=== PATIENT | female | born 1940 | race Caucasian/White ===

== ENCOUNTER 2017-03-25 22:38 | Inpatient (IN) ==
[2017-03-26] MEDS ORDERED: Ondansetron 4 MG/2 ML VIAL IVP PRN (03:31)
[2017-03-26] MEDS ORDERED: Naloxone 0.4 MG/ML INJ IVP PRN (03:31)
[2017-03-26] MEDS ORDERED: Dextrose Gel 15 GM PO PRN ×2 (03:34)
[2017-03-26] MEDS ORDERED: D5% in Water 1,000 ML IVC PRN (03:34)
[2017-03-26] MEDS ORDERED: *HR* Dextrose 50 % in Water (Syg) 50 ML SYRINGE IVP PRN (03:34)
--- NOTE | 2017-03-26 03:45 | Internal Med History&Physical ---
Date of Encounter: 03/26/17 Time of Encounter: 02:30 Assessment and Plan (1) Fall Current visit: Yes Status: Acute Patient complaint bilateral leg weakness. Etiology is undetermined. Transfer to [facility] to rule out stroke. CT head has been done in [place] emergency room, unremarkable. - PT OT evaluation for weakness. - MRI brain in AM to r/o stroke. - Continue cardiac monitoring. Qualifiers: Encounter type: initial encounter Qualified Code(s): W19.XXXA - Unspecified fall, initial encounter (2) Diabetes Current visit: Yes Status: Acute Place patient on sliding scale at this point. Resume home insulin regimen after verification Qualifiers: Diabetes mellitus type: type 2 Diabetes mellitus complication status: without complication Diabetes mellitus truck terminal manager insulin use: with truck terminal manager use Qualified Code(s): E11.9 - Type 2 diabetes mellitus without complications ; Z79.4 - long term acute care registered nurse (current) use of insulin; Z79.4 - snf (current) use of insulin; Z79.4 - long term acute care registered nurse (current) use of insulin; Z79.4 - snf ( current) use of insulin (3) DVT prophylaxis Current visit: Yes Status: Acute Heparin subcutaneously (4) Stroke syndrome Current visit: No Status: Suspected Suspected stroke. Patient has history of CVA. - Place pt on continuous cardiac monitoring - Echo and duplex carotid bilaterally - MRI brain in AM - PTOT evaluation - Speech therapy evaluation for swallowing - Continue home medication aspirin 81 mg daily Qualifiers: CVA mechanism: unspecified Qualified Code(s): I63.9 - Cerebral infarction, unspecified Internal Medicine - H&P: HPI Chief complaint: Fall, weakness Admitted From: Home Plans for Post Hospital Care: Home History of present illness: Ms. Gillette is a 76 year old female with a history of diabetes, previous CVA present to [place] emergency room for fall and weakness. Patient said she has fall in yesterday morning, with dizziness, but no loss of consciousness. Patient denies head injury. She denies any pain on body. Patient said she has bilateral leg weakness prior to fall. Patient denies numbness/tingling/slurred speech. Patient also noticed blood sugar level up and down. In [place] ER, patient's sugar is not low, CVA was suspected by ER doctor. Patient transferred to our hospital for further management. Per [place] ER documentation, patient symptoms started 10+ hours before ER presentation. Past Med Surg Social Fam HX - Past Medical History Medical history: CVA, diabetes Psychiatric history: no psych history - Past Surgical History Surgical History: - Social History Smoking Status: Former smoker Smokeless Tobacco Status: No Alcohol use: none Drug use: none - Family History Brother Hx Family Endocrine Disorder: Yes (DM) Internal Medicine - H&P: Meds Aspirin [Lo-Dose Aspirin EC] 81 mg PO DAILY 03/25/17 [History] Insulin ASPART [NovoLOG] 22 unit SQ BID 03/25/17 [History] Insulin Degludec [Tresiba Flextouch U-100] 35 unit SQ DAILY 03/25/17 [History] Liraglutide [Victoza 2-Chris] 18 mg SQ DAILY 03/25/17 [History] 3 Allergy/AdvReac Type Severity Reaction Status Date / Time No Known Allergies Allergy Verified 03/25/17 21:43 All Systems PM: A 10-system review of systems was performed and is negative for pertinent findings except as documented above in the HPI. - Constitutional Vitals: Temp Pulse Resp BP Pulse Ox 99.0 F 95 16 146/80 98 03/26/17 00:28 03/26/17 00:28 03/26/17 00:28 03/26/17 00:28 03/26/17 00:28 General appearance: Present: A&O X 3, pleasant, no acute distress, answers questions appropriately - Head Head exam: Present: atraumatic, normocephalic - Eye Eye exam: Present: PERRL, conjuntiva pink, sclera anicteric Pupils: Present: PERRL - Neck Neck exam general surgery: Present: supple, trachea midline. Absent: lymphadenopathy - Respiratory Respiratory exam: Present: CTAB. Absent: accessory muscle use, rales, rhonchi, wheezes - Cardiovascular Cardiovascular exam: Present: RRR, +S1, +S2. Absent: diastolic murmur, gallop, rubs, systolic murmur - GI/Abdominal GI/Abdominal exam: Present: normal bowel sounds, soft, no peritoneal signs. Absent: distended, tenderness - Extremities Exam Extremities exam: Present: warm, radial pulses palpable and symmetrical. Absent : calf tenderness, cyanotic, pedal edema - Neurological Exam Neurological exam: Present: CN II-XII intact, oriented X3, no focal deficits, facial droop (Nonsignificant right facial drop, not sure if it is new). Absent : pronater drift, speech deficit - Skin Skin exam: Present: dry, intact
[2017-03-26 04:39] LABS: Bilirubin,Urine Negative (Negative); Blood,Urine Large (Negative); Clarity,Urine Clear (Clear); Color,Urine Yellow (Yellow); Glucose,Urine (UA) 500 mg/dL (Normal); Ketones,Urine Negative (Negative); Leukocyte Esterase,Urine Trace (Negative); Nitrite,Urine Negative (Negative); Protein,Urine Negative (Neg-Trace); Specific Gravity,Urine 1.018 (1.010-1.025); Urobilinogen,Urine Normal (Normal)
[2017-03-26 04:42] LABS: Bacteria,Urine None Seen per hpf (None-Few); Hyaline Casts,Urine None Seen per lpf (None-Few); Squamous Epithelial Cell,Urine Moderate per lpf (None-Few)
[2017-03-26] MEDS: Insulin LISPRO 300 UNITS/3 ML VIAL SQ SCH ×3 (05:55→21:35)
[2017-03-26] MEDS ORDERED: *HR* Heparin 5,000 UNIT/ML VIAL SQ SCH (06:00)
[2017-03-26 06:03] LABS: Basophils # 0.1 K/mcL (0.0-0.2); Basophils % 1.1 %; Eosinophils # 0.2 K/mcL (0.0-0.6); Eosinophils % 2.1 %; Hematocrit 38.2 % (35.3-44.9); Hemoglobin 12.7 g/dL (11.5-15.4); Immature Granulocytes % 0.2 % (0-4); Lymphocytes # 2.1 K/mcL (0.6-4.6); Lymphocytes % 23.7 %; Mean Corpuscular HGB Conc 33.2 g/dL (31.6-35.5); Mean Corpuscular Hemoglobin 30.2 pg (28.0-33.3); Mean Corpuscular Volume 90.7 fL (83.0-100.0); Mean Platelet Volume 10.9 fL (9.4-12.4); Monocytes # 1.1 K/mcL (0.0-1.3); Monocytes % 12.4 %; Neutrophils # 5.4 K/mcL (1.6-8.9); Platelet Count 250 K/mcL (140-400); Red Blood Count 4.21 M/mcL (3.82-4.97); Red Cell Distribution Width 13.8 % (11.5-14.5); Segmented Neutrophils % 60.5 %
[2017-03-26 06:17] LABS: BUN/Creatinine Ratio 23 (6-26); Blood Urea Nitrogen 18 mg/dL (7-20); Calcium 8.9 mg/dL (8.6-10.8); Carbon Dioxide 24 mEq/L (19-29); Chloride 110 mEq/L (98-109); Glucose 110 mg/dL (70-99); Osmolality,Calculated 301 (280-300); Potassium 3.8 mEq/L (3.5-4.5); Sodium 144 mEq/L (136-145); eGFR For African Americans > 60 (> 60); eGFR For Non-African Americans > 60 (> 60)
[2017-03-26] MEDS ORDERED: Aspirin Enteric Coated 81 MG Tablet PO SCH (09:00)
[2017-03-26] MEDS: *HR* Enoxaparin 40 MG/0.4 ML SYRINGE SQ SCH (10:16)
[2017-03-26] MEDS: cefTRIAXone 1,000 MG in Water for inj. (sterile) 10 ML IVP SCH (10:17)
[2017-03-26] MEDS: 0.9 % Sodium Chloride 1,000 ML IVC SCH (10:17)
[2017-03-26] MEDS: Acetaminophen 325 MG TABLET PO PRN ×3 (12:20→23:54)
[2017-03-26] MEDS ORDERED: Ibuprofen 400 MG TABLET PO ONE (14:30)
--- NOTE | 2017-03-26 15:00 | Neurology - Consult Note ---
Date of Encounter: 03/26/17 Time of Encounter: 14:58 Assessment and Plan (1) CVA (cerebral vascular accident) Current Visit: Yes Status: Acute Patient is a 76 year old woman with DM who developed acute onset of left sided weakness altered mental status, consistent with the finding of MRI of brain of right sided hemispheric ischemic infarct. The area involved is somewhat not typical and concerns for posterior circulation infarct or borderzone infarct therefore will look for carotid artery stenosis. Patient has not been compliant with aspirin 81mg daily and will recommend aspirin 325mg daily for secondary stroke prevention. Check lipid panel and treat with statin if necessary. Await carotid artery duplex and echocardiogaphy Patient has left hemiparesis and her gait is affected. Needs PT evaluation. DVT prophylaxis. Qualifiers: CVA mechanism: occlusion Precerebral and cerebral artery: posterior cerebral artery Laterality of affected vessel: right Qualified Code(s): I63.531 - Cerebral infarction due to unspecified occlusion or stenosis of right posterior cerebral artery History of Present Illness Chief complaint: left sided weakness and headache HPI: Ms. Gillette is a 76 year old female with PMH Significant for DM, who developed acute onset of left sided weakness and weakness and headaches. She is interviewed in the presence of her three daughters. One daughter relates that she noticed that the patient developed left sided weakness, gait difficulty, and facial droop and knew that she had a stroke. She also complains of having right sided headache that is not associated with nausea. Initial CT of head was reported no acute intracranial abnormality. MR head/brain wo con IMPRESSION: 1. A moderate to large acute infarct is seen involving the mesial right temporal /occipital lobe. 2. Acute lacunar infarcts are seen involving the right thalamus, the posterior limb of the right internal capsule as well as the left genu of the corpus callosum. 3. No significant mass effect or midline shift. 4. Mild global parenchymal volume loss with chronic microvascular ischemic change. Past Med Surg Social Fam HX - Past Medical History Medical history: CVA, diabetes Psychiatric history: no psych history - Past Surgical History Surgical History: - Social History Smoking Status: Former smoker Smokeless Tobacco Status: No Alcohol use: none Drug use: none - Family History Brother Hx Family Endocrine Disorder: Yes (DM) Medications and Allergies Aspirin [Lo-Dose Aspirin EC] 81 mg PO DAILY 03/25/17 [History] Insulin ASPART [NovoLOG] 22 unit SQ BID 03/25/17 [History] Insulin Degludec [Tresiba Flextouch U-100] 35 unit SQ DAILY 03/25/17 [History] Liraglutide [Victoza 2-Chris] 18 mg SQ DAILY 03/25/17 [History] 3 Allergy/AdvReac Type Severity Reaction Status Date / Time No Known Allergies Allergy Verified 03/25/17 21:43 All Systems: A 10-system review of systems was performed and is negative for pertinent findings except as documented above in the HPI. Physical Examination - Vital Signs Vital Signs: Initial Vital Signs Temp Pulse Resp BP Pulse Ox 99.0 F 95 16 146/80 98 03/26/17 00:28 03/26/17 00:28 03/26/17 00:28 03/26/17 00:28 03/26/17 00:28 - Constitutional General appearance: comfortable - Neurologic Sensorimotor examination: pronator drift (To the left side), hemiparesis (To the left side noted), other (Grossly intact) Detailed motor examination: other (Shows left sided paresis, with positive pronator drift noted to the left side) Motor examination - right side: 5/5: deltoids, biceps, triceps, wrist flexion, wrist extension, mild disabilities teacher, hip flexors, tibialis Anterior, quadriceps, toe extension (EHL), plantarflexion Motor examination - left side: 4/5: deltoids, biceps, triceps, wrist flexion, wrist extension, hip flexors, mild disabilities teacher, quadriceps, tibialis Anterior, toe extension (EHL), plantarflexion Reflexes: Biceps: 2+, Triceps: 2+, Brachioradialis: 2+, Patella: 2+, Achilles: 2 + Mental Status Examination: awake, alert, oriented to person, oriented to place, oriented to time, follows commands appropriately, answers questions appropriately Cranial nerve examination: PERRL, EOMI, visual rivera intact, corneal reflexes brisk symmetrically, sensory to face intact, no facial asymmetry is present ( Showed left facial droop) Results - Laboratory Findings CBC and BMP: 03/26/17 05:13 03/26/17 05:13 Abnormal lab findings: Abnormal lab results Chloride 110 mEq/L (98-109) H 03/26/17 05:13 Glucose 110 mg/dL (70-99) H 03/26/17 05:13 Calculated Osmolality 301 (280-300) H 03/26/17 05:13 Urine Glucose (UA) 500 mg/dL (Normal) H 03/26/17 04:31 Urine Blood Large (Negative) H 03/26/17 04:31 Ur Leukocyte Esterase Trace (Negative) H 03/26/17 04:31 Urine Microscopic RBC 5-15 per hpf (0-3) H 03/26/17 04:31 Urine Microscopic WBC 5-15 per hpf (0-3) H 03/26/17 04:31 Ur Squamous Epith Cells Moderate per lpf (None-Few) H 03/26/17 04:31 Ur Culture Indicated? YES (NO) A 03/26/17 04:31 Consult Discharge Plan - Plan Referrals: Omari Holcomb, [Primary Care Provider] -
--- NOTE | 2017-03-26 17:11 | Event Note ---
Date of Encounter: 03/26/17 Time of Encounter: 17:09 Chart reviewed including H&P, vital signs, orders, labs and diagnostic testing. Patient is a 76-year-old female admitted for concern of CVA. Brain MRI showed a moderate to large acute infarct in the right temporal/occipital lobe and acute lacunar infarcts involving the right thalamus. Neurology was consulted who recommended full dose ASA. Patient will likely need SNF at discharge. PT/OT evaluation pending. Continue ASA. Hgb A1c, lipid panel pending. UA indicative of UTI. Ceftriaxone added. Culture pending
[2017-03-27] MEDS: Acetaminophen 325 MG TABLET PO PRN ×2 (05:39→12:15)
[2017-03-27] MEDS: *HR* Enoxaparin 40 MG/0.4 ML SYRINGE SQ SCH (05:39)
[2017-03-27] MEDS: 0.9 % Sodium Chloride 1,000 ML IVC SCH (05:40)
[2017-03-27 06:09] LABS: Hematocrit 38.7 % (35.3-44.9); Hemoglobin 12.7 g/dL (11.5-15.4); Mean Corpuscular HGB Conc 32.8 g/dL (31.6-35.5); Mean Corpuscular Hemoglobin 30.1 pg (28.0-33.3); Mean Corpuscular Volume 91.7 fL (83.0-100.0); Mean Platelet Volume 10.6 fL (9.4-12.4); Platelet Count 242 K/mcL (140-400); Red Blood Count 4.22 M/mcL (3.82-4.97); Red Cell Distribution Width 13.7 % (11.5-14.5)
[2017-03-27 06:20] LABS: Hemoglobin A1C 8.2 %
[2017-03-27 06:25] LABS: BUN/Creatinine Ratio 20 (6-26); Blood Urea Nitrogen 16 mg/dL (7-20); Calcium 8.4 mg/dL (8.6-10.8); Carbon Dioxide 24 mEq/L (19-29); Chloride 111 mEq/L (98-109); Chol/HDL Ratio 4.3 (0-4.9); Cholesterol 188 mg/dL (< 200); Glucose 172 mg/dL (70-99); HDL Cholesterol 44 mg/dL (40-59); LDL Cholesterol,Calculated 116 mg/dL (0-99); Osmolality,Calculated 301 (280-300); Sodium 143 mEq/L (136-145); Triglycerides 142 mg/dL (< 150); eGFR For African Americans > 60 (> 60); eGFR For Non-African Americans > 60 (> 60)
[2017-03-27] MEDS ORDERED: Aspirin Enteric Coated 325 MG Tablet PO SCH (09:00)
[2017-03-27] MEDS: Insulin LISPRO 300 UNITS/3 ML VIAL SQ SCH ×4 (09:03→21:13)
[2017-03-27] MEDS: cefTRIAXone 1,000 MG in Water for inj. (sterile) 10 ML IVP SCH (10:34)
[2017-03-27] MEDS ORDERED: Ibuprofen 400 MG TABLET PO ONE (15:23)
--- NOTE | 2017-03-27 15:52 | Internal Med Progress Note ---
Date of Encounter: 03/27/17 Time of Encounter: 15:49 - Assessment and plan (1) CVA (cerebral vascular accident) Current Visit: Yes Status: Acute Assessment and plan: Cary Gillette is a 76-year-old female past medical history diabetes presented to outside hospital on 03/26/2017 with concern for CVA. She was transferred to [facility] for further workup and treatment. 1. CVA: Brain MRI with moderate to large acute infarct and right temporal/ occipital lobe and acute lacunar infarcts in the right thalamus. TTE with no PFO or cardiac source of emboli. Noncompliant with ASA 81 mg daily at home. Evaluated by neurology who is concern for posterior circulation infarct or border zone infarct as the area involved is not typical. Bilateral carotid Dopplers with severe stenosis, worse on the right. ASA increased to 325 mg daily. Neck CTA pending. 2. Hyperlipidemia: LDL 116. Statin added. 3. Diabetes: Uncontrolled, Hgb A1c 8.4%. Family reports noncompliance with medication. Continue SSI. Monitor blood sugar and titrate PRN 4. UTI: UA negative for UTI. Continue ceftriaxone. Urine culture ending. 5. DVT prophylaxis: Lovenox, SCDs Qualifiers: CVA mechanism: occlusion Precerebral and cerebral artery: posterior cerebral artery Laterality of affected vessel: right Qualified Code(s): I63.531 - Cerebral infarction due to unspecified occlusion or stenosis of right posterior cerebral artery (2) Diabetes Current Visit: Yes Status: Acute Qualifiers: Diabetes mellitus type: type 2 Diabetes mellitus complication status: without complication Diabetes mellitus penitentiary insulin use: with technician terminal and repeater use Qualified Code(s): E11.9 - Type 2 diabetes mellitus without complications ; Z79.4 - terminal manager (current) use of insulin; Z79.4 - terminal manager (current) use of insulin; Z79.4 - terminal manager (current) use of insulin; Z79.4 - terminal manager ( current) use of insulin - Subjective Interval history: Valerio examined at bedside. She is alert to self with intermittent confusion. Still with left-sided facial droop and left-sided weakness. She has no complaints on my exam - Constitutional Vitals: Temp Pulse Resp BP Pulse Ox 97.9 F 79 17 148/80 97 03/27/17 10:44 03/27/17 10:44 03/27/17 10:44 03/27/17 10:44 03/27/17 10:44 General appearance: Present: A&O X 2, pleasant, no acute distress, answers questions appropriately - Head Head exam: Present: atraumatic, normocephalic - Eye Eye exam: Present: PERRL, conjuntiva pink, sclera anicteric Pupils: Present: PERRL - Neck Neck exam general surgery: Present: supple, trachea midline. Absent: lymphadenopathy - Respiratory Respiratory exam: Present: CTAB. Absent: accessory muscle use, rales, rhonchi, wheezes - Cardiovascular Cardiovascular exam: Present: RRR, +S1, +S2. Absent: diastolic murmur, gallop, rubs, systolic murmur - GI/Abdominal GI/Abdominal exam: Present: normal bowel sounds, soft, no peritoneal signs. Absent: distended, tenderness - Extremities Exam Extremities exam: Present: warm, radial pulses palpable and symmetrical. Absent : calf tenderness, cyanotic, pedal edema - Neurological Exam Neurological exam: Present: CN II-XII intact, no focal deficits. Absent: pronater drift, facial droop, speech deficit Additional comments: Left-sided facial droop with left-sided weakness - Skin Skin exam: Present: dry, intact Internal Medicine: Result - Labs CBC & Chem 7: 03/27/17 05:16 03/27/17 05:16 Labs: Short CBC 03/27/17 Range/Units 05:16 WBC 6.4 (4.3-11.1) K/mcL Hgb 12.7 (11.5-15.4) g/dL Hct 38.7 (35.3-44.9) % Plt Count 242 (140-400) K/mcL [facility] 03/27/17 05:16 Sodium 143 Potassium 4.0 Chloride 111 H Carbon Dioxide 24 BUN 16 Creatinine 0.79 Glucose 172 H Calcium 8.4 L - Impressions Impressions Echocardiogram 03/26/17 03:36 Impressions: LVEF 60-65%. Normal LV chamber size and function. Mild concentric left ventricular hypertrophy. Mild left ventricular diastolic dysfunction. Normal right ventricular structure and function. No evidence of a PFO with agitated saline contrast. No evidence of pulmonary hypertension. Left Ventricular Wall Motion: Rest Echo Findings All wall segments showed normal motion. Findings: Study Quality * Technically adequate exam. ECG Findings * Normal sinus rhythm. Left Ventricle * LVEF 60-65%. * Normal LV chamber size and function. * Mild concentric left ventricular hypertrophy. * Mild left ventricular diastolic dysfunction. Right Ventricle * Normal right ventricular structure and function. Left Atrium * Mildly dilated left atrium. Right Atrium * Normal right atrial size. Interatrial Septum * No evidence of a PFO with agitated saline contrast. Aortic Valve * Trileaflet aortic valve. * Mildly sclerotic aortic valve leaflets. * No aortic regurgitation. * No aortic stenosis. Mitral Valve * Normal mitral valve structure and function. * No mitral regurgitation. * No mitral stenosis. Tricuspid Valve * Normal tricuspid valve structure and function. * Trace tricuspid regurgitation. * No evidence of pulmonary hypertension. Pulmonic Valve * Normal pulmonic valve structure and function. * No pulmonic regurgitation. Aorta * Normally sized aortic root. Pericardium * The pericardium appears normal. IVC * Normal IVC dimensions and inspiratory collapse. Pulmonary Artery * Normal visualized portions of the main pulmonary artery. Consult Discharge Plan - Plan Referrals: Omari Holcomb DO [Primary Care Provider] -
--- NOTE | 2017-03-27 16:48 | Neurology Progress Note ---
Date of Encounter: 03/27/17 Time of Encounter: 16:45 Assessment and Plan (1) CVA (cerebral vascular accident) Current Visit: Yes Status: Acute Patient is a 76 year old woman with cerebral infarct involving the right mesial temporal and occipital lobe with a pattern concerning for borderzone infarct. Indeed CTA of neck showed 90% right ICA stenosis which appears symptomatic. Will consult vascular surgery. Add plavix 75mg daily and continue aspirin 81mg daily. Continue statin therapy. Risk factor modification. PT. Qualifiers: CVA mechanism: occlusion Precerebral and cerebral artery: anterior cerebral artery Laterality of affected vessel: right Qualified Code(s): I63.521 - Cerebral infarction due to unspecified occlusion or stenosis of right anterior cerebral artery Subjective Principal diagnosis: CVA Interval history: Patient seen and examined. She is doing well and her mental status has improved and she has no significant discomforts. Still has left facial droop and mild left sided paresis. Carotid artery duplex showed 60-79% ICA stenosis bilaterally and subsequently CTA of neck showed 90% right ICA stenosis and 50% to the left ICA. Echocardiography showed normal LVEF 60-65%. Normal LV chamber size and function. Mild concentric left ventricular hypertrophy. Mild left ventricular diastolic dysfunction. Normal right ventricular structure and function. No evidence of a PFO with agitated saline contrast. No evidence of pulmonary hypertension. Objective - Constitutional Vitals: Temp Pulse Resp BP Pulse Ox 97.6 F 83 16 152/78 99 03/27/17 16:39 03/27/17 16:39 03/27/17 16:39 03/27/17 16:39 03/27/17 16:39 - Neurological Exam Sensorimotor examination: Present: pronator drift (To the left side), hemiparesis (To the left side noted), other (Grossly intact) Motor Examination: Present: other (Shows left sided paresis, with positive pronator drift noted to the left side) Motor examination - left side: 4/5: deltoids, biceps, triceps, wrist flexion, wrist extension, hip flexors, street light cleaner, quadriceps, tibialis Anterior, toe extension (EHL), plantarflexion Mental Status Examination: Present: awake, alert, oriented to person, oriented to place, oriented to time, follows commands appropriately, answers questions appropriately Cranial nerve examination: Present: PERRL, EOMI, visual rivera intact, corneal reflexes brisk symmetrically, sensory to face intact, no facial asymmetry is present (Showed left facial droop) Results - Laboratory Findings CBC and BMP: 03/27/17 05:16 03/27/17 05:16 Abnormal lab findings: Abnormal lab results Chloride 111 mEq/L (98-109) H 03/27/17 05:16 Glucose 172 mg/dL (70-99) H 03/27/17 05:16 POC Glucose 195 (58-89) H 03/26/17 21:11 Hemoglobin A1c 8.2 % (-5.6) H 03/27/17 05:16 Calculated Osmolality 301 (280-300) H 03/27/17 05:16 Calcium 8.4 mg/dL (8.6-10.8) L 03/27/17 05:16 LDL Cholesterol, Calc 116 mg/dL (0-99) H 03/27/17 05:16 Urine Glucose (UA) 500 mg/dL (Normal) H 03/26/17 04:31 Urine Blood Large (Negative) H 03/26/17 04:31 Ur Leukocyte Esterase Trace (Negative) H 03/26/17 04:31 Urine Microscopic RBC 5-15 per hpf (0-3) H 03/26/17 04:31 Urine Microscopic WBC 5-15 per hpf (0-3) H 03/26/17 04:31 Ur Squamous Epith Cells Moderate per lpf (None-Few) H 03/26/17 04:31 Ur Culture Indicated? YES (NO) A 03/26/17 04:31 Consult Discharge Plan - Plan Referrals: Omari Holcomb DO [Primary Care Provider] -
[2017-03-27] MEDS: Insulin DETEMIR 100 UNIT/ML X5UNITS SQ SCH (21:09)
[2017-03-28] MEDS: Acetaminophen 325 MG TABLET PO PRN ×2 (00:28→14:30)
[2017-03-28 04:36] LABS: Hemoglobin 12.2 g/dL (11.5-15.4); Mean Corpuscular Hemoglobin 30.5 pg (28.0-33.3); Mean Corpuscular Volume 92.5 fL (83.0-100.0); Mean Platelet Volume 10.8 fL (9.4-12.4); Platelet Count 204 K/mcL (140-400); Red Cell Distribution Width 13.5 % (11.5-14.5)
[2017-03-28 04:56] LABS: BUN/Creatinine Ratio 22 (6-26); Blood Urea Nitrogen 17 mg/dL (7-20); Calcium 8.4 mg/dL (8.6-10.8); Carbon Dioxide 24 mEq/L (19-29); Chloride 112 mEq/L (98-109); Glucose 180 mg/dL (70-99); Osmolality,Calculated 298 (280-300); Potassium 3.9 mEq/L (3.5-4.5); Sodium 141 mEq/L (136-145); eGFR For African Americans > 60 (> 60); eGFR For Non-African Americans > 60 (> 60)
[2017-03-28] MEDS: *HR* Enoxaparin 40 MG/0.4 ML SYRINGE SQ SCH (05:39)
--- NOTE | 2017-03-28 07:24 | Vascular/Endovasc Consult Note ---
Date of Encounter: 03/28/17 Time of Encounter: 18:15 Assessment and Plan (1) Carotid stenosis, right Status: Chronic The pathophysiology and natural history of carotid stenosis was discussed with the patient and all questions were answered. The patient has a recnet right hemispheric CVA. She does not appear to have any focal neurologic deficits on exam today. She has a greater than 90% right internal carotid artery stenosis on CTA. The patient will ultimately require a right carotid endarterectomy. The risks, benefits and alternatives were discussed and all questions were answered. ASA and Plavix recommended. (2) Diabetes Status: Chronic Qualifiers: Diabetes mellitus type: type 2 Diabetes mellitus complication status: without complication Diabetes mellitus detention insulin use: with long term care administrator use Qualified Code(s): E11.9 - Type 2 diabetes mellitus without complications ; Z79.4 - ocean transportation intermediary (current) use of insulin; Z79.4 - ocean transportation intermediary (current) use of insulin; Z79.4 - senior care (current) use of insulin; Z79.4 - ocean transportation intermediary ( current) use of insulin (3) CVA (cerebral vascular accident) Status: Acute Qualifiers: CVA mechanism: stenosis Precerebral and cerebral artery: posterior cerebral artery Laterality of affected vessel: right Qualified Code(s): I63.531 - Cerebral infarction due to unspecified occlusion or stenosis of right posterior cerebral artery - History of Present Illness Consult date: 03/27/17 Requesting physician: Elsi Esteban Consult reason: Carotid stenosis Chief complaint: Carotid stenosis, CVA History of present illness: Ms. Gillette is a 76 year old female who was admitted with a right hemispheric cerebrovascular accident. Her symptoms were mainfested by leg weakness. Her symptoms resolved after admission. As part of her evaluation, she underwent a a CTA of the neck which revealed significant carotid artery stenosis. Vascular surgery was consulted for further evaluation. At the time of evaluation, the patient is alert, comfortable and without complaints. She denies chest pain or shortness of breath. She denies prior strokes. Past Med Surg Social Fam HX - Past Medical History Medical history: CVA, diabetes Psychiatric history: no psych history - Past Surgical History Surgical History: - Social History Smoking Status: Former smoker Smokeless Tobacco Status: No Alcohol use: none Drug use: none - Family History Brother Hx Family Endocrine Disorder: Yes (DM) Medications and Allergies Aspirin [Lo-Dose Aspirin EC] 81 mg PO DAILY 03/25/17 [History] Atorvastatin [Lipitor] 20 mg PO HS tablet 03/29/17 [Rx] Clopidogrel [Plavix] 75 mg PO DAILY tablet 03/29/17 [Rx] Insulin DETEMIR [Levemir] 10 unit SQ HS [id number] 03/29/17 [Rx] Insulin LISPRO [Humalog] 100 unit SQ ACHS #1 cartridge 03/29/17 [Rx] Nitrofurantoin Monohyd/M-Cryst [Macrobid 100 mg Capsule] 100 mg PO BID #14 capsule 03/29/17 [Rx] 3 Allergy/AdvReac Type Severity Reaction Status Date / Time No Known Allergies Allergy Verified 03/25/17 21:43 All Systems Review: A 10-system review of systems was performed and is negative for pertinent findings except as documented above in the HPI. Exam Vital Signs, Last 4 Hours Temp Pulse Resp BP Pulse Ox 03/28/17 04:15 97.9 F 62 18 136/84 03/28/17 04:06 97.9 F 62 18 136/84 03/28/17 03:33 97.9 F 62 18 136/84 98 General: Present: Conversant, No Apparent Distress HEENT: Present: Pupils equal Cardiac: Present: Reg Rate and Rhythm Lungs: Present: Normal Breath Sounds Neuro: Present: Alert and responsive, Cranial nerves grossly intact, Motor nerves grossly intact, Sensory nerves grossly intact Abdomen: Present: Soft Vascular: Present: Normal capillary refill, Pulse, normal. Absent: Cyanosis, Edema Skin: Present: No rashes noted on visualized skin Consult Discharge Plan - Plan Instructions: Carotid Endarterectomy (DC), Carotid Artery Disease (DC), Ischemic Stroke (DC) Referrals: Angel Bragg MD [Partnered Physician] - 04/08/17 3:50 pm Omari Holcomb DO [Primary Care Provider] - Kye Lanza MD [Partnered Physician] - (Appoointment has been webrequested; our offices will call you with an appointment time and date. Thank You. ) Prescriptions: Insulin LISPRO [Humalog] 100 unit SQ ACHS #1 cartridge Nitrofurantoin Monohyd/M-Cryst [Macrobid 100 mg Capsule] 100 mg PO BID #14 capsule
[2017-03-28] MEDS: Aspirin 81 MG TAB.CHEW PO SCH (08:55)
[2017-03-28] MEDS: Insulin LISPRO 300 UNITS/3 ML VIAL SQ SCH ×4 (08:55→21:47)
[2017-03-28] MEDS: cefTRIAXone 1,000 MG in Water for inj. (sterile) 10 ML IVP SCH (12:17)
--- NOTE | 2017-03-28 16:07 | Internal Med Progress Note ---
Date of Encounter: 03/28/17 Time of Encounter: 08:30 - Assessment and plan (1) CVA (cerebral vascular accident) Current Visit: Yes Status: Acute Assessment and plan: Cary Gillette is a 76-year-old female past medical history diabetes presented to outside hospital on 03/26/2017 with concern for CVA. She was transferred to [facility] for further workup and treatment. 1. CVA: Brain MRI with moderate to large acute infarct in right temporal/ occipital lobe and acute lacunar infarcts in the right thalamus. TTE with no PFO or cardiac source of emboli. Bilateral carotid Dopplers with severe stenosis , worse on the right. Neck CTA with 90% stenosis of artery ICA and 50% stenosis of LICA. Evaluated by neurology who recommended ASA 81 mg daily and Plavix. Will need acute inpatient rehabilitation at discharge. 2. Carotid stenosis: Neck CTA with 90% stenosis of SANTO and 50% stenosis of LICA. Evaluated by Vascular Surgery who noted patient will require a right carotid endarterectomy. Final recommendations pending. Continue ASA, Plavix, statin. 2. Hyperlipidemia: LDL 116. Statin added. 3. Diabetes: Uncontrolled, Hgb A1c 8.4%. Family reports noncompliance with medication. Continue SSI. Low dose long-acting Levemir. Monitor blood sugar and titrate PRN 4. UTI: UA negative for UTI. Continue ceftriaxone. Urine culture pending. 5. DVT prophylaxis: Lovenox, SCDs Disposition: PT/OT recommending acute inpatient rehabilitation. 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 No acute changes and assessment report. Patient remains alert to self and place at times. She will answer questions appropriately at times and follow commands. No family at bedside. She has no complaints. - Constitutional Vitals: Temp Pulse Resp BP Pulse Ox 98.6 F 77 17 160/85 97 03/28/17 15:27 03/28/17 15:27 03/28/17 15:27 03/28/17 15:27 03/28/17 15:27 General appearance: Present: A&O X 2, pleasant, no acute distress, answers questions appropriately - Head Head exam: Present: atraumatic, normocephalic - Eye Eye exam: Present: PERRL, conjuntiva pink, sclera anicteric Pupils: Present: PERRL - Neck Neck exam general surgery: Present: supple, trachea midline. Absent: lymphadenopathy - Respiratory Respiratory exam: Present: CTAB. Absent: accessory muscle use, rales, rhonchi, wheezes - Cardiovascular Cardiovascular exam: Present: RRR, +S1, +S2. Absent: diastolic murmur, gallop, rubs, systolic murmur - GI/Abdominal GI/Abdominal exam: Present: normal bowel sounds, soft, no peritoneal signs. Absent: distended, tenderness - Extremities Exam Extremities exam: Present: warm, radial pulses palpable and symmetrical. Absent : calf tenderness, cyanotic, pedal edema - Neurological Exam Neurological exam: Present: CN II-XII intact, no focal deficits. Absent: pronater drift, facial droop, speech deficit Additional comments: Intermittent left upper extremity weakness and left facial droop. - Skin Skin exam: Present: dry, intact Internal Medicine: Result - Labs CBC & Chem 7: 03/28/17 04:10 03/28/17 04:10 Labs: Short CBC 03/28/17 Range/Units 04:10 WBC 7.2 (4.3-11.1) K/mcL Hgb 12.2 (11.5-15.4) g/dL Hct 37.0 (35.3-44.9) % Plt Count 204 (140-400) K/mcL BMP 03/28/17 04:10 Sodium 141 Potassium 3.9 Chloride 112 H Carbon Dioxide 24 BUN 17 Creatinine 0.78 Glucose 180 H Calcium 8.4 L Urine 03/26/17 Range/Units 04:31 Urine Color Yellow (Yellow) Urine Clarity Clear (Clear) Urine pH 6.0 (5.0-8.0) pH Units Ur Specific [place] 1.018 (1.010-1.025) Urine Protein Negative (Neg-Trace) mg/dL Urine Glucose (UA) 500 H (Normal) mg/dL Consult Discharge Plan - Plan Referrals: Angel Bragg MD [Partnered Physician] - 04/08/17 3:50 pm Omari Holcomb DO [Primary Care Provider] -
[2017-03-28] MEDS: Insulin DETEMIR 100 UNIT/ML X5UNITS SQ SCH (21:46)
[2017-03-29 03:32] LABS: Hematocrit 39.2 % (35.3-44.9); Mean Corpuscular HGB Conc 33.2 g/dL (31.6-35.5); Mean Corpuscular Hemoglobin 30.5 pg (28.0-33.3); Mean Platelet Volume 10.7 fL (9.4-12.4); Platelet Count 251 K/mcL (140-400); Red Blood Count 4.26 M/mcL (3.82-4.97); Red Cell Distribution Width 13.4 % (11.5-14.5)
[2017-03-29 03:58] LABS: BUN/Creatinine Ratio 23 (6-26); Blood Urea Nitrogen 18 mg/dL (7-20); Calcium 8.8 mg/dL (8.6-10.8); Carbon Dioxide 24 mEq/L (19-29); Chloride 110 mEq/L (98-109); Glucose 154 mg/dL (70-99); Osmolality,Calculated 299 (280-300); Potassium 3.9 mEq/L (3.5-4.5); Sodium 142 mEq/L (136-145); eGFR For African Americans > 60 (> 60); eGFR For Non-African Americans > 60 (> 60)
[2017-03-29] MEDS: *HR* Enoxaparin 40 MG/0.4 ML SYRINGE SQ SCH (06:10)
[2017-03-29] MEDS: Acetaminophen 325 MG TABLET PO PRN (06:11)
[2017-03-29] MEDS: Insulin LISPRO 300 UNITS/3 ML VIAL SQ SCH (08:28)
[2017-03-29] MEDS: Aspirin 81 MG TAB.CHEW PO SCH (08:28)
--- NOTE | 2017-03-29 09:47 | Discharge Summary ---
Date of Encounter: 03/29/17 Time of Encounter: 09:20 - Discharge Diagnosis (1) CVA (cerebral vascular accident) Priority: Primary Status: Acute Comments: Cary Gillette is a 76-year-old female past medical history diabetes presented to outside hospital on 03/26/2017 with concern for CVA. She was transferred to [facility] for further workup and treatment. She was found to have an acute CVA. She was transferred to acute inpatient rehab at discharge in stable condition [facility] outpatient follow-up 1. CVA: due to stenosis of right posterior cerebral artery. Presented with bilateral lower ext weakness and fall. Brain MRI with moderate to large acute infarct in right temporal/occipital lobe and acute lacunar infarcts in the right thalamus. TTE with no PFO or cardiac source of emboli. Bilateral carotid dopplers with severe stenosis. Neck CTA with 90% stenosis of SANTO and 50% stenosis of LICA. Evaluated by neurology who recommended ASA, Plavix. Discharge to acute inpatient rehab. Cont ASA, plavix, statin. Will need to follow-up with Neurology. 2. Carotid stenosis: Neck CTA with 90% stenosis of SANTO and 50% stenosis of LICA. Evaluated by Vascular Surgery who noted patient will require a right carotid endarterectomy; this can be done on an outpatient basis. Continue ASA, Plavix, statin. Follow-up with Dr. Beverly on 04/08/17 3. Hyperlipidemia: LDL 116. Cont statin 4. Diabetes: Uncontrolled, Hgb A1c 8.4%. Family reports noncompliance with medication. Continue SSI. Low dose Levemir. 5. UTI: UA indicative of UTI. Ceftriaxone started on admission. Urine culture with gram negative rods, sensitive to Macrobid. ATB changed to Macrobid; to complete 7 day course Qualifiers: CVA mechanism: stenosis Precerebral and cerebral artery: anterior cerebral artery Laterality of affected vessel: right Qualified Code(s): I63.521 - Cerebral infarction due to unspecified occlusion or stenosis of right anterior cerebral artery (2) Diabetes Priority: Primary Status: Acute Qualifiers: Diabetes mellitus type: type 2 Diabetes mellitus complication status: without complication Diabetes mellitus long-term insulin use: with long-term use Qualified Code(s): E11.9 - Type 2 diabetes mellitus without complications ; Z79.4 - USP (current) use of insulin; Z79.4 - USP (current) use of insulin; Z79.4 - USP (current) use of insulin; 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 (3) Hyperlipidemia Priority: Primary Status: Acute Qualifiers: Hyperlipidemia type: pure hypercholesterolemia Qualified Code(s): E78.00 - Pure hypercholesterolemia, unspecified; E78.0 - Pure hypercholesterolemia (4) UTI (urinary tract infection) due to Enterococcus Priority: Primary Status: Acute - Discharge Medications Prescriptions: Insulin LISPRO [Humalog] 100 unit SQ ACHS #1 cartridge Nitrofurantoin Monohyd/M-Cryst [Macrobid 100 mg Capsule] 100 mg PO BID #14 capsule Home Medications: Aspirin [Lo-Dose Aspirin EC] 81 mg PO DAILY 03/25/17 [History] Atorvastatin [Lipitor] 20 mg PO HS tablet 03/29/17 [Rx] Clopidogrel [Plavix] 75 mg PO DAILY tablet 03/29/17 [Rx] Insulin DETEMIR [Levemir] 10 unit SQ HS [id number] 03/29/17 [Rx] Insulin LISPRO [Humalog] 100 unit SQ ACHS #1 cartridge 03/29/17 [Rx] Nitrofurantoin Monohyd/M-Cryst [Macrobid 100 mg Capsule] 100 mg PO BID #14 capsule 03/29/17 [Rx] Allergies/Adverse Reactions: 3 Allergy/AdvReac Type Severity Reaction Status Date / Time No Known Allergies Allergy Verified 03/25/17 21:43 Procedures/tests Complete & Pending: Procedures Performed prior 72 hours Category Date Time Status CT angio neck [CT] Routine Cat Scan 03/27/17 14:00 Completed Date of admission: 03/26/17 16:10 Primary care physician: Omari Holocmb DO Consults: 03/26/17 03:33 Consult to Occupational Therapy [CONS] Routine Comment: Evaluate, develop and implement POC Reason for Consult: Fall Consult to Physical Therapy [CONS] Routine Comment: Evaluate, develop and implement POC Reason for Consult: Fall 03/26/17 03:34 Consult to Speech Therapy [CONS] Routine Comment: Evaluate, develop and implement POC Reason for Consult: Suspect stroke Call Completed: No 03/26/17 12:37 Consult to Neurology [CONS] Routine Consulting Provider: Neurology [facility] Reason for Consult: Acute infarct Call Completed: Yes 03/27/17 16:42 Consult to Vascular Surgery [CONS] Routine Consulting Provider: Vascular Surgery [facility] Reason for Consult: right ICA stenosis Call Completed: Yes Discharging clinician: Elsi Esteban Anticipated date of discharge: 03/29/17 - Patient Status Disposition: Transfer Inpatient Rehab Fac Condition: Good Functional capacity at discharge: uses cane/walker Overall status at discharge: patient is not back to baseline - Discharge Instructions Instructions: Carotid Artery Disease (DC), Ischemic Stroke (DC), Carotid Endarterectomy (DC) Follow Up With: Angel Bragg MD [Partnered Physician] - 04/08/17 3:50 pm Omari Holcomb DO [Primary Care Provider] - - Diet and Activity Activity: as per physical therapy Diet: diabetic diet, low fat, low cholesterol Interval History: Seen and examined at bedside, patient is alert to self only, pleasantly confused. Says she is tired, otherwise has no complaints. at bedside and updated. Patient to be discharged to acute inpatient rehab - Time Spent with Patient Total time spent providing and/or coordinating discharge services: Greater than 30 minutes (54 minutes spent on discharge) - Constitutional Vitals: Temp Pulse Resp BP Pulse Ox 97.8 F 72 17 158/86 97 03/29/17 07:18 03/29/17 07:18 03/29/17 07:18 03/29/17 07:18 03/29/17 07:18 General appearance: Present: A&O X 2, pleasant, no acute distress, answers questions appropriately - Head Head exam: Present: atraumatic, normocephalic - Eye Eye exam: Present: PERRL, conjuntiva pink, sclera anicteric Pupils: Present: PERRL - Neck Neck exam general surgery: Present: supple, trachea midline. Absent: lymphadenopathy - Respiratory Respiratory exam: Present: CTAB. Absent: accessory muscle use, rales, rhonchi, wheezes - Cardiovascular Cardiovascular exam: Present: RRR, +S1, +S2. Absent: diastolic murmur, gallop, rubs, systolic murmur - GI/Abdominal GI/Abdominal exam: Present: normal bowel sounds, soft, no peritoneal signs. Absent: distended, tenderness - Extremities Exam Extremities exam: Present: warm, radial pulses palpable and symmetrical. Absent : calf tenderness, cyanotic, pedal edema - Neurological Exam Neurological exam: Present: CN II-XII intact, facial droop (left facial droop ) . Absent: pronater drift, speech deficit - Skin Skin exam: Present: dry, intact
[2017-03-29 11:39] VITALS: BP 153/71
--- NOTE | 2017-03-29 14:14 | Physician Discharge Referral ---
ExtendedCare Referral Info Transfer To: [facility] Provider in Charge: Elsi Esteban CNP Provider in Charge after Transfer: Other ([facility]) Institutional Level of Care: Skilled - Diagnosis (1) CVA (cerebral vascular accident) Status: Acute (2) Diabetes Status: Acute (3) Hyperlipidemia Status: Acute (4) UTI (urinary tract infection) due to Enterococcus Status: Acute - Transfer Medications Prescriptions: Insulin LISPRO [Humalog] 100 unit SQ ACHS #1 cartridge Nitrofurantoin Monohyd/M-Cryst [Macrobid 100 mg Capsule] 100 mg PO BID #14 capsule Home Medications: Aspirin [Lo-Dose Aspirin EC] 81 mg PO DAILY 03/25/17 [History] Atorvastatin [Lipitor] 20 mg PO HS tablet 03/29/17 [Rx] Clopidogrel [Plavix] 75 mg PO DAILY tablet 03/29/17 [Rx] Insulin DETEMIR [Levemir] 10 unit SQ HS q0tithh 03/29/17 [Rx] Insulin LISPRO [Humalog] 100 unit SQ ACHS #1 cartridge 03/29/17 [Rx] Nitrofurantoin Monohyd/M-Cryst [Macrobid 100 mg Capsule] 100 mg PO BID #14 capsule 03/29/17 [Rx] Allergies/Adverse Reactions: 3 Allergy/AdvReac Type Severity Reaction Status Date / Time No Known Allergies Allergy Verified 03/25/17 21:43 - Respiratory Orders None Smoking Cessation: Smoking cessation has been advised. For more information, call the [place] Tobacco Quit Line at 1-026-DJTA-NOW. - Advance Directives Code Status: Full Code - Mobility Orders Ambulate - Rehabiliation Orders Rehab Potential: Good Rehab Orders: Evaluation for Physical Therapy, Evaluation for Occupational Therapy, Evaluation for Speech Therapy - Diet Orders Cardiac CERTIFICATION: I certify that the transfer of the above named patient to an Extended Care Facility is necessary for the continuing treatment of the diagnosis listed. The above information is true and accurate reflection of patient's current condition. Confidential - Redisclosure prohibited without a patient's written consent.
== END 2017-03-29 12:27 | DRG 65 ==
LOC: 3BNU
PROVIDERS: ADMIT Registered Nurse; ATTEND Registered Nurse

== ENCOUNTER 2017-04-24 06:18 | Inpatient (IN) ==
[2017-04-24] MEDS ORDERED: CeFAZolin Syr 2,000MG/20 ML 2,000 MG/20 ML SYRINGE IVPB ONE (06:36)
[2017-04-24] MEDS ORDERED: Vancomycin 1,000 MG in D5% in Water 250 ML IVPB ONE (06:36)
[2017-04-24] MEDS ORDERED: Lidocaine -MPF 1% 2 ML VIAL ID ONE (06:36)
[2017-04-24] MEDS ORDERED: Ringers Solution, Lactated 1,000 ML IVC SCH (06:45)
[2017-04-24] MEDS ORDERED: Lidocaine -MPF 2% 2 ML VIAL ONE (07:00)
[2017-04-24] MEDS ORDERED: Lidocaine -MPF 4% 5 ML AMPUL ONE (07:00)
[2017-04-24] MEDS ORDERED: Ondansetron 4 MG/2 ML VIAL ONE (07:00)
[2017-04-24] MEDS ORDERED: *HR* Propofol 200 MG/20 ML VIAL IVP ONE (07:00)
[2017-04-24] MEDS ORDERED: *HR* FentaNYL (PF) 100 MCG/2 ML VIAL ONE (07:00)
[2017-04-24] MEDS ORDERED: *HR* Rocuronium Bromide 50 MG/5 ML VIAL ONE (07:00)
[2017-04-24] MEDS ORDERED: *HR* Succinylcholine 200 MG/10 ML VIAL IVP ONE (07:00)
--- NOTE | 2017-04-24 07:02 | Anesthesia Evaluation PreOp ---
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 (residual left visual disturbance both eyes, left sided weakness) Other Medical History: Diabetes Type II Anesthesia History: No Prior Anesthetic Complications, Past Anesthesia Alcohol Use: none Drug use: none Medications and Allergies Aspirin [Lo-Dose Aspirin EC] 81 mg PO DAILY 03/25/17 [History] Atorvastatin [Lipitor] 20 mg PO HS tablet 03/29/17 [Rx] Clopidogrel [Plavix] 75 mg PO DAILY tablet 03/29/17 [Rx] Insulin DETEMIR [Levemir] 10 unit SQ HS [id number] 03/29/17 [Rx] Insulin LISPRO [Humalog] 100 unit SQ ACHS #1 cartridge 03/29/17 [Rx] Nitrofurantoin Monohyd/M-Cryst [Macrobid 100 mg Capsule] 100 mg PO BID #14 capsule 03/29/17 [Rx] 3 Allergy/AdvReac Type Severity Reaction Status Date / Time No Known Allergies Allergy Verified 03/25/17 21:43 - Meds/Allergy Pre-op Review Medications Reviewed: Yes Allergies Reviewed: Yes Beta Blockers on Current Med List: No Anesthesia Results - Labs Laboratory Tests 03/25/17 04/15/17 04/22/17 21:30 08:54 05:37 WBC 8.1 Hgb 13.5 Hct 40.4 Plt Count 269 PT 11.1 INR 1.0 APTT 27.1 Sodium 141 Potassium 4.2 BUN 17 Creatinine 0.93 - Imaging EKG: report reviewed (03/25/2017 SINUS RHYTHM LEFT ATRIAL ENLARGEMENT LEFT ANTERIOR FASCICULAR BLOCK) Additional studies: 03/26/2017 Echo Impressions: LVEF 60-65%. Normal LV chamber size and function. Mild concentric left ventricular hypertrophy. Mild left ventricular diastolic dysfunction. Normal right ventricular structure and function. No evidence of a PFO with agitated saline contrast. No evidence of pulmonary hypertension. Anesthesia Exam O2 Sat Height 1.55 m Height 1.55 m Weight 71.214 kg Weight 71.214 kg O2 Sat by Pulse Oximetry 94 Vital Signs Temp Pulse Resp BP Pulse Ox 97.9 F 74 18 145/80 94 04/24/17 06:31 04/24/17 06:31 04/24/17 06:31 04/24/17 06:31 04/24/17 06:31 Blood Glucose* 162 Height: 5'1'' Weight: 157 lbs NPO (# of Hours): 8 Pain Scale: 0 Pain Scale Used: Numeric (1 - 10) - HEENT Pupil (Motor): EOMI Mallampati: II Teeth: Normal, Missing Denture Type: Upper: Complete Oral Opening: Greater than 3 - HOOKING MACHINE OPERATOR LOC: Oriented HOOKING MACHINE OPERATOR Motor: Normal RUE, Normal RLE, Normal Face, Deficit LUE, Deficit LLE HOOKING MACHINE OPERATOR Sensory: Normal: RUE, LUE, RLE, LLE, Deficit: Face (left visual disturbance both eyes) - Cardiac Rhythm: Regular Murmur: None - Pulmonary Breath Sounds: bilateral Clear Respiratory Effort: Symmetrical Anesthesia Assess/Plan ASA Score: 3 Modified [place] Scale for Level of Consciousness: Cooperative, oriented, and tranquil Anesthetic Plan: General Monitoring Plan: Standard Monitors, A-Line Recovery Plan: PACU
[2017-04-24] MEDS ORDERED: *HR* Phenylephrine 10 MG/ML VIAL ONE (07:04)
[2017-04-24] MEDS ORDERED: Heparin 1,000 UNITS/500 mL NS 500 ML ONE ×2 (07:11→07:15)
[2017-04-24] MEDS ORDERED: Bupivacaine-MPF 0.25% 10 ML VIAL ONE (07:22)
[2017-04-24] MEDS ORDERED: Vancomycin 1,000 MG VIAL ONE (07:23)
[2017-04-24] MEDS ORDERED: *HR* Remifentanil 1 MG VIAL IVP ONE (07:32)
--- NOTE | 2017-04-24 07:37 | History & Physical Report ---
Date of Encounter: 04/24/17 Time of Encounter: 07:28 24 Hour HP Update - Instructions Instructions: If the History and Physical is less than 30 days old and was completed prior to A.M. admission and or procedure and has NOT been updated on calendar day of procedure please complete this update prior to performing procedure. - Update Patient reports changes in Medical Condition: No Changes in examination, assessment, or condition: No Changes in Medication: No Preop tests/diagnostics Reviewed: Yes Surgery Remains Indicated: Yes Consent for Planned Operative Procedure(s) Verified: Yes - Pre-Operative Checklist Preoperative Checklist Indicated: Yes Prophylactic Antibiotic Ordered: Yes (vancomycin due to MRSA risk) Home Medications Include Beta Antonina: No Beta Antonina Taken Today (Day of Surgery): No Beta Antonina Taken Yesterday (Day Prior to Surgery): No Is VTE Prophylaxis Indicated?: Yes
[2017-04-24] MEDS ORDERED: EPHEDrine 50 MG/ML VIAL ONE (07:42)
[2017-04-24] MEDS ORDERED: *HR* Vasopressin 20 UNIT/ML VIAL ONE (08:51)
[2017-04-24] MEDS ORDERED: Hydrocortisone Sodium Succ 100 MG/2 ML VIAL ONE (08:57)
[2017-04-24] MEDS ORDERED: *HR* Labetalol 100 MG/20 ML MDV ONE (09:00)
[2017-04-24] MEDS ORDERED: *HR* Labetalol 20 MG/4 ML SYRINGE IVP PRN ×2 (09:17→13:02)
[2017-04-24] MEDS ORDERED: *HR* Promethazine 25 MG/ML VIAL IVP PRN (09:17)
[2017-04-24] MEDS ORDERED: *HR* HYDROmorphone (PF) 1 MG/ML SYRINGE IVP PRN (09:17)
[2017-04-24] MEDS ORDERED: Neostigmine Methylsulfate 3 MG/3 ML SYRINGE ONE (10:22)
[2017-04-24] MEDS ORDERED: *HR* HYDROmorphone 2 MG/ML SYRINGE ONE (10:43)
--- NOTE | 2017-04-24 11:10 | Operative Note ---
Date of procedure: 04/24/17 Pre-op diagnosis: Symptomatic 90% right internal carotid artery stenosis Post-op diagnosis: same Procedure: Right carotid endarterectomy with hemashield patch angioplasty. Complications: None Anesthesia: [facility] Surgeon: Angel Bragg Estimated blood loss (cc): 50 Specimen: Right carotid plaque Condition: stable Disposition: PACU Procedure in Detail: Indications: The patient is a 77 year old male who recently sustained a right hemispheric cerebrovascular accident. She was found to have a 90% right internal carotid artery stenosis by CT angiogram. A right carotid endarterectomy was recommended to reduce her risk of future stroke. Procedure: The patient was identified in the preoperative area. The risks, benefits, and alternatives of the procedure were discussed and all questions were answered. The patient was then taken to the operating room and placed in supine position on the operating table. After induction of general endotracheal anesthesia, the patient was cleaned and draped in normal sterile fashion. A longitudinal incision was made anterior to the right sternocleidomastoid muscle. Hemostasis was obtained via electrocautery. Through a process of blunt , sharp, and electrocautery dissection, the platysma was traversed. The jugular vein was identified. The facial vein was clamped, divided, tied off with a 2-0 silk suture ligature. The jugular vein was retracted, exposing the carotid bifurcation. Patient received 2000 units of heparin intravenously at this time. Proximal dissection of the common and external carotid arteries were performed circumferentially. Dissection of the internal carotid was performed circumferentially. Vessels loops were passed around the internal and external carotid and an umbilical tape was passed from the common carotid artery. The patient received additional 3000 units of heparin intravenously. After waiting adequate time for the heparin to circulate, the vessels were occluded and a longitudinal arteriotomy was made into the common carotid artery extending into the internal carotid beyond the plaque. The plaque was long, extended distally and was heavily calcified. Vigorous pulsatile retrograde flow was noted from the internal carotid artery upon release of the vessel loop. Due to the brisk pulsatile retrograde flow, no shunt was placed. A dental [place] was then used to perform a standard endarterectomy. Proximal and distal endpoints were inspected. No elevated flaps were noted. Additional heparin was given throughout the procedure to maintain adequate anticoagulation. A Hemashield patch was cut to fit the defect and sutured in place with running 6 -0 Prolene. Prior to completing the closure, each vessel was flushed and then reoccluded. Heparinized saline was infused into the lumen. The patch was completed. Flow was restored in the external carotid artery, followed the common carotid artery, lastly the internal carotid artery was opened. A low resistance arterialized signal was present within the internal carotid artery beyond the patch. Thrombin and Gelfoam were used to aid in hemostasis. Meticulous hemostasis was obtained throughout the wound with electrocautery. Platelet rich and platelet poor plasma were infused into the wounds. The sternocleidomastoid was reapproximated with interrupted 3-0 Vicryl. Platelet rich and platelet poor plasma were infused into the wound. A TLS drain was brought through a separate stab incision and sutured in place with 0 silk suture. The platysma was reapproximated with running 3-0 Vicryl. Local anesthetic was infused in the skin. A 3-0 Monocryl was used to reapproximate the skin. A sterile dressing was applied. The patient was extubated, taken to the recovery room in stable condition.
[2017-04-24] MEDS ORDERED: Protamine Sulfate 50 MG/5 ML VIAL IVP ONE ×2 (11:49→11:58)
[2017-04-24] MEDS ORDERED: Protamine Sulfate 50 MG/5 ML VIAL IVP PRN (11:58)
--- NOTE | 2017-04-24 12:18 | Anesthesia Evaluation Post Op ---
Date of Encounter: 04/24/17 Time of Encounter: 12:16 - Vital Signs Vital Signs: Vital Signs/O2 Sat, Most Current Temp Pulse Resp BP Pulse Ox 97.1 F L 97 16 116/62 97 04/24/17 11:13 04/24/17 11:43 04/24/17 11:43 04/24/17 11:43 04/24/17 11:43 - Lungs Lungs: Clear Ascult./Percussion - Airway Airway: Non-obstructed (1-2cm tracheal deviation to the patient's left. No difficulty breathing or stridor noted. Dr Bragg called to bedside to evaluate and denied any need to re-explore or intervene by any other means. Okay for transfer from PACU) - Cardiovascular Regular Rate - Mental Status Mental Status: Alert & Oriented, Answers Appropriately - Pain Pain Scale: 0 - Nausea Vomiting Nausea Vomiting: Not Present - Hydration Hydration: NPO, [place] catheter
[2017-04-24] MEDS ORDERED: *HR* Heparin 5,000 UNIT/ML VIAL ONE (12:50)
[2017-04-24] MEDS ORDERED: D5% in Water 1,000 ML IVC PRN (13:02)
[2017-04-24] MEDS ORDERED: *HR* Dextrose 50 % in Water (Syg) 50 ML SYRINGE IVP PRN (13:02)
[2017-04-24] MEDS ORDERED: Melatonin 3 MG TABLET PO PRN (13:02)
[2017-04-24] MEDS ORDERED: Ondansetron 4 MG/2 ML VIAL IVP PRN (13:02)
[2017-04-24] MEDS ORDERED: Dextrose Gel 15 GM PO PRN ×2 (13:02)
[2017-04-24] MEDS ORDERED: Naloxone 0.4 MG/ML INJ IVP PRN (13:02)
[2017-04-24] MEDS ORDERED: Acetaminophen 325 MG TABLET PO PRN (13:02)
[2017-04-24] MEDS ORDERED: *HR* OxyCODONE Immed Rel 5 MG TABLET PO PRN (13:02)
[2017-04-24] MEDS: *HR* Morphine 2 MG/ML SYRINGE IVP PRN (14:50)
[2017-04-24] MEDS: *HR* Metoprolol 5 MG/5 ML VIAL IVP SCH ×3 (14:58→23:49)
[2017-04-24] MEDS: Insulin LISPRO 300 UNITS/3 ML VIAL SQ SCH ×2 (14:59→17:55)
[2017-04-24] MEDS ORDERED: CeFAZolin Premix DUPLEX 2,000 MG/50 ML BAG IVPB SCH (16:00)
[2017-04-24] MEDS: *HR* HYDROcodone/Acet 5/325 mg TABLET PO PRN (17:47)
[2017-04-24] MEDS ORDERED: *HR* Heparin 5,000 UNIT/ML VIAL SQ SCH (18:00)
[2017-04-24] MEDS ORDERED: Insulin LISPRO 300 UNITS/3 ML VIAL SQ SCH (21:00)
[2017-04-25] MEDS: *HR* Metoprolol 5 MG/5 ML VIAL IVP SCH ×3 (04:51→12:41)
[2017-04-25] MEDS: *HR* Morphine 2 MG/ML SYRINGE IVP PRN (04:57)
[2017-04-25] MEDS ORDERED: *HR* Heparin 5,000 UNIT/ML VIAL SQ SCH (06:00)
--- NOTE | 2017-04-25 06:18 | Discharge Summary ---
Date of Encounter: 04/25/17 Time of Encounter: 07:55 - Discharge Diagnosis (1) Carotid stenosis, bilateral Status: Chronic (2) Diabetes Status: Chronic Qualifiers: Diabetes mellitus type: type 2 Diabetes mellitus complication status: without complication Diabetes mellitus terminal operations supervisor insulin use: with intermediate use Qualified Code(s): E11.9 - Type 2 diabetes mellitus without complications ; Z79.4 - prison (current) use of insulin; Z79.4 - ad terminal makeup operator (current) use of insulin; Z79.4 - ad terminal makeup operator (current) use of insulin; Z79.4 - ad terminal makeup operator ( current) use of insulin - Discharge Medications Prescriptions: HYDROcodone/Acet 5/325 mg [[place] 5-325 mg] 1 tab PO Q6HR PRN #16 tablet PRN Reason: POSTOPERATIVE PAIN Home Medications: Aspirin [Lo-Dose Aspirin EC] 81 mg PO DAILY 03/25/17 [History] Atorvastatin [Lipitor] 20 mg PO HS tablet 03/29/17 [Rx] Clopidogrel [Plavix] 75 mg PO DAILY tablet 03/29/17 [Rx] Docusate [Colace] 100 mg PO DAILY PRN 04/24/17 [History] Insulin DETEMIR [Levemir] 10 unit SQ BID 04/24/17 [History] Insulin LISPRO [Humalog] 2 - 7 unit SQ ACHS 04/24/17 [History] Melatonin 5 mg PO HS PRN 04/24/17 [History] HYDROcodone/Acet 5/325 mg [[place] 5-325 mg] 1 tab PO Q6HR PRN #16 tablet [Rx] Allergies/Adverse Reactions: 3 Allergy/AdvReac Type Severity Reaction Status Date / Time No Known Allergies Allergy Verified 03/25/17 21:43 Date of admission: 04/24/17 12:39 Primary care physician: PCP NONE Consults: 04/24/17 13:16 Consult to Pastoral Services [CONS] Routine Comment: Consult to Engineering Technical Analyst [CONS] Routine Reason for SW Consult: Current placement in swing bed facility - Patient Status Disposition: Transfer Inpatient Rehab Fac Condition: Good Functional capacity at discharge: independent ambulation Overall status at discharge: patient is back to baseline - Discharge Instructions Follow Up With: Young Jackson MD [Partnered Physician] - 04/28/17 10:40 am Angel Bragg MD [Partnered Physician] - 06/04/17 8:45 am NONE,PCP [Primary Care Provider] - Additional Instructions: May remove bandage and shower on 04/26/17. Wash wound gently and pat to dry. Call Dr. Bragg at [phone] with questions or concerns. - Diet and Activity Activity: increase activity as tolerated Diet: diabetic diet - Hospital Course Hospital course: Ms. Gillette is a 77 year old female - Time Spent with Patient Total time spent providing and/or coordinating discharge services: Exam Vital Signs, Last 4 Hours Temp Pulse Resp BP Pulse Ox 04/25/17 04:18 98.2 F 102 19 164/78 98 - VTE Documentation of Mechanical Device: Intermittent pneumatic compression device
[2017-04-25] MEDS: Insulin LISPRO 300 UNITS/3 ML VIAL SQ SCH ×2 (08:20→12:41)
--- NOTE | 2017-04-25 08:20 | Physician Discharge Referral ---
ExtendedCare Referral Info Transfer To: rehab Provider in Charge after Transfer: PCP Institutional Level of Care: Skilled - Diagnosis (1) Carotid stenosis, bilateral Priority: Primary Status: Chronic (2) Diabetes Priority: Secondary Status: Chronic (3) Hyperlipidemia Priority: Secondary Status: Chronic Prognosis: Good Aware of Diagnosis: Patient Aware of Prognosis: Patient - Transfer Medications Prescriptions: HYDROcodone/Acet 5/325 mg [[place] 5-325 mg] 1 tab PO Q6HR PRN #16 tablet PRN Reason: POSTOPERATIVE PAIN Home Medications: Aspirin [Lo-Dose Aspirin EC] 81 mg PO DAILY 03/25/17 [History] Atorvastatin [Lipitor] 20 mg PO HS tablet 03/29/17 [Rx] Clopidogrel [Plavix] 75 mg PO DAILY tablet 03/29/17 [Rx] Docusate [Colace] 100 mg PO DAILY PRN 04/24/17 [History] Insulin DETEMIR [Levemir] 10 unit SQ BID 04/24/17 [History] Insulin LISPRO [Humalog] 2 - 7 unit SQ ACHS 04/24/17 [History] Melatonin 5 mg PO HS PRN 04/24/17 [History] HYDROcodone/Acet 5/325 mg [[place] 5-325 mg] 1 tab PO Q6HR PRN #16 tablet [Rx] Allergies/Adverse Reactions: 3 Allergy/AdvReac Type Severity Reaction Status Date / Time No Known Allergies Allergy Verified 03/25/17 21:43 - Respiratory Orders Smoking Cessation: Smoking cessation has been advised. For more information, call the [place] Tobacco Quit Line at 9-230-WNYFNOW. - Ancillary Orders May use pressure relief devices daily prn, May go on TIM w/family/respon democrat w /meds at nurse discretion PRN, May have alcoholic beverages, May consult with Dentist, Joint Special Operations, Offset Plate Maker PRN - Advance Directives Living Will: No Power of Supervisor Front: No Code Status: Full Code - Mobility Orders Ambulate - Rehabiliation Orders Rehab Potential: Good Rehab Orders: ROM Exercises, Evaluation for Physical Therapy, Evaluation for Occupational Therapy - Treatments Skin tear care topically daily PRN per policy, May check for fecal impaction rectally daily PRN, Fleet enema rectally every other day PRN cleansing purposes - Diet Orders No Concentrated Sweets CERTIFICATION: I certify that the transfer of the above named patient to an Extended Care Facility is necessary for the continuing treatment of the diagnosis listed. The above information is true and accurate reflection of patient's current condition. Confidential - Redisclosure prohibited without a patient's written consent.
[2017-04-25] MEDS ORDERED: Aspirin Enteric Coated 81 MG Tablet PO SCH (09:00)
[2017-04-25] MEDS: *HR* HYDROcodone/Acet 5/325 mg TABLET PO PRN (10:59)
[2017-04-25 12:16] VITALS: BP 137/72
== END 2017-04-25 13:57 | DRG 38 ==
LOC: SAMDAY 06:18 → 2NNU 12:39
PROVIDERS: ADMIT Surgery; ATTEND Surgery

== ENCOUNTER 2018-01-25 11:43 | Inpatient (IN) ==
--- NOTE | 2018-01-25 11:49 | Emergency Department Note ---
Disposition Clinical Impression: STEMI (ST elevation myocardial infarction), Vomiting Disposition: Admitted As Inpatient Condition: Fair General Adult HPI - General Stated complaint: STEMI Time Seen by Provider: 01/25/18 11:45 - Related Data Home Medications Medication Instructions Recorded Confirmed Aspirin [Lo-Dose Aspirin EC] 81 mg PO DAILY 03/25/17 05/13/17 Docusate [Colace] 100 mg PO DAILY PRN 04/24/17 05/13/17 Insulin LISPRO [Humalog] 2 - 7 unit SQ ACHS 04/24/17 05/13/17 Melatonin 5 mg PO HS PRN 04/24/17 05/13/17 Previous Rx's Medication Instructions Recorded Atorvastatin [Lipitor] 20 mg PO HS tablet 03/29/17 Clopidogrel [Plavix] 75 mg PO DAILY tablet 03/29/17 HYDROcodone/Acet 5/325 mg [[place] 1 tab PO Q6HR PRN #16 tablet 04/25/17 5-325 mg] Insulin DETEMIR [Levemir] 15 unit SQ BID 30 Days 05/02/17 Allergies Allergy/AdvReac Type Severity Reaction Status Date / Time No Known Allergies Allergy Verified 05/13/17 14:58 Past Medical History - Past Medical History Medical history: Reports: CVA Surgical history: Reports: Psychiatric history: Reports: no psych history - Social History Smoking Status: Never smoker Smokeless Tobacco Status: No Alcohol use: Reports: none Drug use: Reports: none Course Vital Signs Temperature 97.2 F L 01/25/18 11:44 Pulse Rate 85 01/25/18 11:44 Respiratory Rate 18 01/25/18 11:44 Blood Pressure 164/143 01/25/18 11:44 O2 Sat by Pulse Oximetry 86 01/25/18 11:44 Temperature 97.4 F L 01/25/18 12:50 Pulse Rate 93 01/25/18 16:00 Respiratory Rate 25 01/25/18 16:00 Blood Pressure 123/75 01/25/18 16:00 O2 Sat by Pulse Oximetry 90 01/25/18 16:00 Oxygen Delivery Oxygen Delivery Room Air Medical Decision Making - Lab Data Result diagrams: 01/25/18 11:47 01/25/18 11:47 Lab Results 01/25/18 01/25/18 01/25/18 Range/Units 11:47 11:47 11:53 WBC 11.2 H (4.3-11.1) K/mcL RBC 3.29 L (3.82-4.97) M/mcL Hgb 8.8 L (11.5-15.4) g/dL Hct 28.3 L (35.3-44.9) % MCV 86.0 (83.0-100.0) fL MCH 26.7 L (28.0-33.3) pg MCHC 31.1 L (31.6-35.5) g/dL RDW 15.8 H (11.5-14.5) % Plt Count 251 (140-400) K/mcL MPV 11.0 (9.4-12.4) fL Immature Gran % 0.7 (0-4) % Seg Neutrophils % 80.4 % Lymphocytes % 11.9 % Monocytes % 5.9 % Eosinophils % 0.7 % Basophils % 0.4 % Neutrophils # 9.0 H (1.6-8.9) K/mcL Lymphocytes # 1.3 (0.6-4.6) K/mcL Monocytes # 0.7 (0.0-1.3) K/mcL Eosinophils # 0.1 (0.0-0.6) K/mcL Basophils # 0.1 (0.0-0.2) K/mcL PT 11.4 (9.4-12.1) Seconds INR 1.0 APTT 25.3 L (26.0-36.0) Seconds Heparin Anti-Xa, Unfract 0.08 L (0.30-0.70) IU/mL Sodium 133 L (136-145) mEq/L Potassium 4.0 (3.5-5.1) mEq/L Chloride 104 (98-107) mEq/L Carbon Dioxide 19 L (23-29) mEq/L BUN 53 H (8-23) mg/dL Creatinine 1.23 H (0.60-1.20) mg/dL Est GFR ( Amer) 51 L (> 60) Est GFR (Non-Af Amer) 42 L (> 60) BUN/Creatinine Ratio 43 H (6-26) Glucose 310 H (70-105) mg/dL Calculated Osmolality 302 H (280-300) Calcium 8.1 L (8.6-10.3) mg/dL Magnesium 2.4 (1.6-2.6) mg/dL Troponin I 11.67 H* (< 0.04) ng/mL Attestation Statement - Attestation Attestation: I examined this patient and my medical decision-making was reviewed with the Resident Physician. I agree with the documented findings, disposition and treatment plan as described except to the extent set forth below. [id number] time provided Prehospital STEMI alert activated. Patient complains of abdominal pain and nausea. She has a previous history of stroke. She is in no acute distress upon arrival. ECG confirmed inferior ST segment elevation.
[2018-01-25] MEDS ORDERED: *HR* Heparin 5,000 UNIT/ML VIAL IVP PRN ×2 (11:54)
[2018-01-25] MEDS ORDERED: *HR* Heparin 5,000 UNIT/ML VIAL IVP ONE (11:54)
[2018-01-25] MEDS ORDERED: Aspirin 325 MG TABLET PO ONE (11:54)
[2018-01-25] MEDS ORDERED: *HR* Ticagrelor 90 MG TABLET PO ONE (11:54)
[2018-01-25] MEDS ORDERED: Heparin 1,000 UNITS/500 mL 500 ML ONE (11:55)
[2018-01-25] MEDS ORDERED: Verapamil 5 MG/2 ML VIAL ONE (11:55)
[2018-01-25] MEDS ORDERED: 0.9 % Sodium Chloride 2,000 ML ONE (11:55)
[2018-01-25] MEDS ORDERED: Nitroglycerin 1,000 MCG/10 ML VIAL IV ONE (11:56)
[2018-01-25] MEDS ORDERED: *HR* Heparin 10,000 UNIT/10 ML VIAL ONE (11:56)
[2018-01-25] MEDS ORDERED: ISOVUE-370 200 ML INFUS..BTL IV ONE (11:56)
--- NOTE | 2018-01-25 11:56 | Emergency Department Note ---
Disposition Clinical Impression: STEMI (ST elevation myocardial infarction) Qualifiers: Involved coronary artery: unspecified coronary artery Qualified Code(s): I21.3 - ST elevation (STEMI) myocardial infarction of unspecified site Vomiting Qualifiers: Vomiting type: unspecified Vomiting Intractability: non-intractable Nausea presence: without nausea Qualified Code(s): R11.11 - Vomiting without nausea Disposition: Admitted As Inpatient Condition: Fair Forms: ED Satisfaction Letter Time of Disposition: 12:12 Chest Pain HPI - General Chief Complaint: ED Chest Pain Stated Complaint: STEMI Time Seen by Provider: 01/25/18 11:43 Source: patient, EMS Mode of arrival: EMS Limitations: no limitations Vital Signs Reviewed: Yes Nursing Notes Reviewed: Yes - History of Present Illness HPI Narrative: Patient is a 77-year-old female with past medical history of previous CVAs, diabetes. EMS transmitted EKG prior to arrival. EKG was concerning for inferior STEMI with ST elevation in lead 3, aVF, reciprocal changes of ST depression in lead 1, aVL. STEMI alert was called prior to the patient arriving at 11:25 AM. Per EMS report, patient had heart rate in the 30s, systolic pressure in the 90s. Upon reexamination, patient had significant difference in bilateral upper extremity blood pressures, when extremity was 160 systolic, other extremity was 100 systolic. Upon presentation, patient had heart rate in the 80s, blood pressure was stable in the 160s. Bilateral upper extremity pressures were fairly equal. Patient herself states that just prior to arrival, she had abdominal pain, vomiting. Denies any overt chest pain or shortness of breath. Due to discomfort, she was not able to answer many other review of system questions. Denies any previous history of CT or stents. Family is at bedside, patient was complaining of some chest discomfort a couple hours ago, stated to family that her pain was worsening and started clutching her chest, started vomiting. Patient denied chest pain several times during questioning. Severity scale (1-10): 0 - Related Data Home Medications Medication Instructions Recorded Confirmed Aspirin [Lo-Dose Aspirin EC] 81 mg PO DAILY 03/25/17 05/13/17 Docusate [Colace] 100 mg PO DAILY PRN 04/24/17 05/13/17 Insulin LISPRO [Humalog] 2 - 7 unit SQ ACHS 04/24/17 05/13/17 Melatonin 5 mg PO HS PRN 04/24/17 05/13/17 Previous Rx's Medication Instructions Recorded Atorvastatin [Lipitor] 20 mg PO HS tablet 03/29/17 Clopidogrel [Plavix] 75 mg PO DAILY tablet 03/29/17 HYDROcodone/Acet 5/325 mg [[place] 1 tab PO Q6HR PRN #16 tablet 04/25/17 5-325 mg] Insulin DETEMIR [Levemir] 15 unit SQ BID 30 Days 05/02/17 Allergies Allergy/AdvReac Type Severity Reaction Status Date / Time No Known Allergies Allergy Verified 05/13/17 14:58 All systems ED: reviewed and negative except as stated. Cardiovascular: Denies: chest pain Respiratory: Denies: dyspnea Gastrointestinal: Reports: abdominal pain, nausea, vomiting. 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 Denies: headache, numbness Chest Pain PMH - Past Medical History Medical history: Reports: CVA Surgical history: Reports: Psychiatric history: Reports: no psych history - Social History Smoking Status: Never smoker Alcohol use: Reports: none Drug use: Reports: none Physical Exam - General Limitations: no limitations General appearance: other - Head Head exam: atraumatic, normocephalic, normal inspection - Eye Eye exam: Present: normal appearance, PERRL, EOMI - ENT ENT exam: normal exam, normal oropharynx, mucous membranes moist - Neck Neck exam: Present: normal inspection, full ROM, trachea midline - Chest Chest inspection: Present: normal inspection, symmetric chest wall rise - Respiratory Respiratory exam: Present: normal lung sounds bilaterally - Cardiovascular Cardiovascular exam: Present: regular rate, normal rhythm, normal heart sounds - Abdominal Exam Abdominal exam: Present: soft, Non-Tender. Absent: tenderness, distention, guarding, rebound, rigidity - Extremities Exam Extremities exam: Present: normal inspection, full ROM. Absent: tenderness, pedal edema - Neurological Exam Neurological exam: Present: alert, oriented X3. Absent: motor sensory deficit - Expanded Neurological Exam Patient oriented to: Present: person, place, time Speech: Present: fluid speech Motor strength - LUE: 5/5 Coma Scale Eye Opening: Spontaneous Coma Scale Motor Response: Obeys Commands Coma Scale Verbal Response: Oriented Coma Scale Total: 15 - Psychiatric Psychiatric exam: Present: normal affect, normal mood - Skin Skin exam: Present: warm, dry, intact, normal color Course Course Narrative: STEMI alert called at 11:25a prior to arrival. Patient arrived at 11:43am via EMS. STEMI protocol was followed along with STEMI labs. Patient was placed on pads/lifepack upon arrival. Repeat EKG upon arrival: 01/25/2018 at 11:48. Sinus rhythm. Rate 85. MO 23. QRS 170. ST elevation in 3, aVF. ST depression in lead 1, aVL. Normal axis. BP BP stable in 160s systolic, placed on oxy mask due to initial presentaiton with O2 sat 87% on RA. Now 98% on oxy mask, otherwise no signs of respiratory distress. Bedside chest x-ray performed and no widened mediastinum concerning for dissection. Bilateral radial pulses +2/4 and symmetric. Bedside ultrasound showed no significant pericardial effusion. Dr. La spoke with Dr. Lazaro about presentation and EKG changes. Recommended following standard protocol. Aspirin 325mg, brilinta 180, and heparin low ACS bolus given. 12:07 Patient now being wheeled to laboratory animal caretaker at this time. Stable prior to travel. Vital Signs Temperature 97.2 F L 01/25/18 11:44 Pulse Rate 85 01/25/18 11:44 Respiratory Rate 18 01/25/18 11:44 Blood Pressure 164/143 01/25/18 11:44 O2 Sat by Pulse Oximetry 86 01/25/18 11:44 Temperature 97.2 F L 01/25/18 11:44 Pulse Rate 89 01/25/18 11:57 Respiratory Rate 18 01/25/18 11:57 Blood Pressure 109/69 01/25/18 11:57 O2 Sat by Pulse Oximetry 97 01/25/18 11:57 Oxygen Delivery Oxygen Delivery Room Air Chest Pain - MDM Narrative Medical decision making narrative: STEMI alert called at 11:25a prior to arrival. Patient arrived at 11:43am via EMS. STEMI protocol was followed along with STEMI labs. Patient was placed on pads/lifepack upon arrival. Repeat EKG upon arrival: 01/25/2018 at 11:48. Sinus rhythm. Rate 85. MO 23. QRS 170. ST elevation in 3, aVF. ST depression in lead 1, aVL. Normal axis. BP BP stable in 160s systolic, placed on oxy mask due to initial presentaiton with O2 sat 87% on RA. Now 98% on oxy mask, otherwise no signs of respiratory distress. Bedside chest x-ray performed and no widened mediastinum concerning for dissection. Bilateral radial pulses +2/4 and symmetric. Bedside ultrasound showed no significant pericardial effusion. Dr. La spoke with Dr. Lazaro about presentation and EKG changes. Recommended following standard protocol. Aspirin 325mg, brilinta 180, and heparin low ACS bolus given. 12:07 Patient now being wheeled to laboratory animal caretaker at this time. Stable prior to travel. - Medical Records Medical records reviewed: Yes I reviewed the patient's medical records. S.B.A.R. - S.B.A.R. Situation: Demographics, MOA Background: Presenting Complaint, Relevant PMH, Meds, & Allergies Assessment: Vital Signs, Course and respsone to treatment, Exam Concerns, Patient/Family Expectation, Pertinant Lab Results, Outstanding Labs Recommendation: Recommendation based on pending studies, treatments, or consults S.B.A.R. Report Given to: Dr. Lazaro; spoke with Dr. La
[2018-01-25] MEDS ORDERED: *HR* Heparin 5,000 UNIT/ML VIAL ONE (12:00)
[2018-01-25] MEDS ORDERED: Heparin 25,000 UNIT/500 ML D5W 25,000 UNIT/500 ML BAG IVC SCH (12:00)
[2018-01-25 12:06] LABS: ABG Base Excess -6 mEq/L (-2 to 3); ABG HCO3 19 mEq/L (21-27); ABG Oxygen Saturation 92 % (95-98); ABG PCO2 35 mmHg (35-45); ABG PH 7.34 pH Units (7.32-7.45); ABG PO2 66 mmHg (85-104); ABG TCO2 20 mEq/L (20-26)
[2018-01-25 12:06] LABS: Basophils # 0.1 K/mcL (0.0-0.2); Basophils % 0.4 %; Eosinophils # 0.1 K/mcL (0.0-0.6); Eosinophils % 0.7 %; Hematocrit 28.3 % (35.3-44.9); Hemoglobin 8.8 g/dL (11.5-15.4); Immature Granulocytes % 0.7 % (0-4); Lymphocytes # 1.3 K/mcL (0.6-4.6); Lymphocytes % 11.9 %; Mean Corpuscular HGB Conc 31.1 g/dL (31.6-35.5); Mean Corpuscular Hemoglobin 26.7 pg (28.0-33.3); Monocytes # 0.7 K/mcL (0.0-1.3); Monocytes % 5.9 %; Platelet Count 251 K/mcL (140-400); Red Blood Count 3.29 M/mcL (3.82-4.97); Red Cell Distribution Width 15.8 % (11.5-14.5); Segmented Neutrophils % 80.4 %
[2018-01-25 12:11] LABS: Heparin anti-factor XA UFH 0.08 IU/mL (0.30-0.70); Prothrombin Time 11.4 Seconds (9.4-12.1)
[2018-01-25 12:14] LABS: Activated Partial Thrombo Time 25.3 Seconds (26.0-36.0)
[2018-01-25 12:26] LABS: Calcium 8.1 mg/dL (8.6-10.3); Magnesium 2.4 mg/dL (1.6-2.6)
[2018-01-25 12:38] LABS: Troponin I 11.67 ng/mL (< 0.04)
[2018-01-25] MEDS ORDERED: Ondansetron 4 MG/2 ML VIAL IVP PRN (12:38)
--- NOTE | 2018-01-25 12:38 | Pre-Sedation Evaluation ---
Pre-sedation evaluation - Pre-sedation checklist Date of procedure: 01/25/18 Procedure: [facility] Recent Vitals: Last Vital Signs Temp 97.2 F L 01/25/18 11:44 Pulse 84 01/25/18 12:03 Resp 16 01/25/18 12:07 BP 125/74 01/25/18 12:07 Pulse Ox 98 01/25/18 12:03 H&P (including ROS) documented in medical record: Yes Previous reaction to sedatives/anesthetics: No Dietary Status: No solid food in preceding 4 hrs and no liquid in preceding 2 hrs Airway Assessment: Patient can open mouth completely, TMJ function normal If Yes;: History of difficult intubation ASA Classification *see protocol: CLASS III-Severe systemic disease, E-EMERGENCY -Add to any of the above to indicate emergent Plan of Care: Pt appropriate candidate for procedure/moderate/conscious sedation , Risks/benefits of procedure/sedation discussed w/ patient/family, If not NPO; Risk of intake outweiged by necessity to perform procedure Cardiac Registry (Cardio Only) - Functional Capacity Functional Capacity: Unknown - Clincal Frailty Scale Clinical Frailty Scale: Vulnerable
--- NOTE | 2018-01-25 13:11 | Invasive Diagnostic Lab Proc ---
Name: Cary Gillette Date of Study: 01/25/2018 Date: 1940 Ht: 63.0in Medical Record#: [id number] Age: 77 Wt: 165.35lb Gender: Female BSA: 1.78 Order #: [id number] BMI: 29.3 Physicians Procedure Physician: Walt Lazaro MD, [facility] Referring MD: Referring MD: Staff Name Position Time In Jim Matos RN Visual Aid Expert 12:12 PM Vonnie Guzman RT (R) Monitor 12:12 PM Marco Goodwin RT (R) Scrub 12:12 PM Indications Indication STEMI Procedures Performed Procedure L HRT ARTERY/VENTRICLE ANGIO Pre-Procedure Checklist Pt not NPO for procedure and MD aware. Blood Pressure: 128/77 Rhythm: NSR Plan of Care Patient will tolerate the procedure without complications. Adequate level of comfort will be maintained. Hemodynamics will remain stable Patient will recover from procedure without complications. Respiratory function will be maintained. Cardiac rhythm will remain stable. Patient temperature will be maintained. Patient and/or family have verbalized understanding of the procedure. Patient Education Intravenous Access Time IV Size Location DC'd Fluid/Drip Rate Units RN 18g 1 1/4" Peripheral-Lock On Arrival Rt Hand 18g 1 1/4" Patent On Arrival Rt Arm 0.9NaCl 50 ml/hr Jim aMtos RN Allergies No Known Allergies Vital Signs Time BP (mmHg) HR (bpm) O2 Sat. RR (bpm) LOC 12:12 PM / % 3 = Answers simple questions/follows commands 12:13 PM / % 3 = Answers simple questions/follows commands 12:28 PM / % 3 = Answers simple questions/follows commands 12:27 PM 102 / 63 86 85 % 23 12:33 PM 121 / 74 84 90 % 26 12:12 PM 128 / 77 84 % 8 12:17 PM 129 / 73 85 % 20 12:22 PM 123 / 77 85 % 21 Procedural Medications Time Medication Dose Units Method Given By 12:13 PM Oxygen 10 L/min Oxy Mask Jim Matos RN 12:19 PM Lidocaine 2% 9 ml Subcutaneous Walt Lazaro MD, [facility] ASA Classification: Emergent Procedure: ASA score is assumed Vicki Score Preprocedure Postprocedure Activity 1- Moves 2 extremities sustained head lift Activity 1- Moves 2 extremities sustained head lift Circulation 2- SBP +/= 20 points of pre-anesthetic level Circulation 2- SBP +/= 20 points of pre-anesthetic level Consciousness 1- Responds to verbal stimuli drowsy Consciousness 1- Responds to verbal stimuli drowsy O2 Saturation 1- Needs O2 inhalation to maintain O2 saturation of 90% O2 Saturation 1- Needs O2 inhalation to maintain O2 saturation of 90% Respiratory 2- Able to deep breathe and cough well Respiratory 2- Able to deep breathe and cough well Total Score 7 Total Score 7 Contrast Agent: Isovue Diagnostic Contrast: 74 ml Total Contrast: 74 ml Fluoro Dose: 3361 mGy Procedure Log Time Note Enter By 12:00 PM CathStat 12:12 PM Vitals capture started with the following parameters, Patient=Adult, Interval=5 min, Initial Kskhcvmw=372 mmHg, Deflation Rate=5 mmHg, Cuff placed on Right Arm 12:12 PM Pt arrived to chemical lab technician 2 at 12:12 tsites 12:12 PM Jim Matos RN Position: Visual Aid Expert Time in: 12:12 tsites 12:12 PM Vonnie Guzman RT (R) Position: Monitor Time in: 12:12 tsites 12:12 PM Marco Goodwin RT (R) Position: Scrub Time in: 12:12 tsites 12:12 PM Patient charges- Angio tray pack, Navilyst 3mm J, Pulse Oximetry and ACIST tubing and transducer tsites 12:12 PM HR=84 bpm, CYHA=432/77 mmhg, Resp=8 B/min 12:12 PM Hair removed from procedure site in emergency department using clippers. Bilateral groin prepped with Chloraprep by Marco Goodwin (R), then patient was draped. Skin intact. tsites 12:12 PM Physician arrived 12:12 tsites 12:12 PM Meet and greet completed tsites 12:12 PM Sign in performed according to hospital policy. tsites 12:12 PM Procedure start 12:12 tsites 12:12 PM Time: 12:12 Patient comfortable and pain free: Yes tsites 12:13 PM Time: 12:12LOC: 3 = Answers simple questions/follows commands tsites 12:13 PM Time: 12:13 Oxygen on at 10 L/min per Oxy Mask by Jim Matos RN tsites 12:17 PM Recorded ECG: HR=86 Condition=Condition 1 12:17 PM Pressure channel 1 zeroed. 12:17 PM HR=85 bpm, ZUMB=452/73 mmhg, Resp=20 B/min 12:18 PM Time out performed according to hospital policy tsites 12:19 PM Time: 12:19 9 ml Lidocaine 2% to right groin Subcutaneous Given by Walt Lazaro MD, [facility] tsites 12:19 PM Access obtained by percutaneous puncture. 6Fr 10cm Terumo [place] sheath placed in right Femoral artery. [id number] tsites 12:19 PM 5Fr FL 4 catheter inserted over the wire DN tsites 12:19 PM LCA angiography performed in multiple views. tsites 12:19 PM Recorded Pressure: Ao, HR=85, Condition=Condition 1 (Aorta) Ao 115/54/85 12:21 PM Recorded Pressure: Ao, HR=87, Condition=Condition 1 (Aorta) Ao 99/62/79 12:21 PM 0.035 145cm Navilyst 3mmJ wire [id number] tsites 12:21 PM wire reinserted catheter removed tsites 12: PM 5Fr FR 4 catheter inserted over the wire DN tsites 12:22 PM HR=85 bpm, MIQY=130/77 mmhg, Resp=21 B/min 12:23 PM Lesion found in Mid LAD. Pre Stenosis: 99 Pre DIMITRY Flow: tsites 12:23 PM Lesion found in Distal LAD. Pre Stenosis: 70 Pre DIMITRY Flow: tsites 12:23 PM Lesion found in Mid Circumflex. Pre Stenosis: 100 Pre DIMITRY Flow: tsites 12:23 PM Mid/Distal Left Anterior Descending Coronary Artery and diagonal branches with 99% stenosis. If graft is supplying this area, 0 % stenosis tsites 12:23 PM Recorded Pressure: Ao, HR=79, Condition=Condition 1 (Aorta) Ao 113/17/65 12:23 PM Circumflex, Obtuse Marginal, Left Posterior Descending, and Left Posterolateral Coronary Arteries with 100 % stenosis. If graft is supplying this area, 0 % stenosis tsites 12:24 PM RCA angiography performed in multiple views. tsites 12:24 PM wire reinserted catheter removed tsites 12:25 PM 5Fr Pigtail catheter inserted over the wire DN tsites 12:25 PM Catheter selectively placed in left ventricle tsites 12:25 PM edp measured tsites 12:25 PM Recorded Pressure: LV, HR=88, Condition=Condition 1 (Left Ventricle) LV 92/22/38 12:26 PM Recorded Pressure: LV, HR=88, Condition=Condition 1 (Left Ventricle) LV 99/12/31 12:26 PM Bolus angiogram of left Ventricle complete: 12 ml/sec for a total of 30 mls tsites 12:27 PM Recorded Pressure: LV, Ao, HR=74, Condition=Condition 1 (Left Ventricle) LV 91/7/19, (Aorta) Ao 90/44/64 12:27 PM Physician reviewing films tsites 12:27 PM HR=86 bpm, WBBE=937/63 mmhg, SpO2=85.0 %, Resp=23 B/min 12:28 PM Time: 12:13LOC: 3 = Answers simple questions/follows commands tsites 12:28 PM Time: 12:12 Patient comfortable and pain free: Yes tsites 12:28 PM Lesion found in Proximal RCA. Pre Stenosis: 80 Pre DIMITRY Flow: tsites 12:28 PM Lesion found in Mid RCA. Pre Stenosis: 890 Pre DIMITRY Flow: tsites 12:28 PM Coronary Dominance: right tsites 12:29 PM Right Coronary, Right Posterior Descending Arteries with Right Posterolateral and Acute Marginal branches with 90 % stenosis. If graft is supplying this area, 0 % stenosis tsites 12:29 PM Bolus angiogram of Abdominal aorta complete: 10 ml/sec for a total of 20 mls tsites 12:32 PM ACT drawn tsites 12:32 PM Procedure completed at 12:32 01/25/2018 tsites 12:32 PM Did you address DIMITRY flow and Dominance? Yes tsites 12:33 PM HR=84 bpm, WRNJ=733/74 mmhg, SpO2=90.0 %, Resp=26 B/min 12:33 PM Sign out completed: Radiation Dose 2589 mGy, 3361 cGy/cm2 Fluoro Time: 1.0 Isovue 370 - 200ml contrast 74 ml given by Walt Lazaro MD, [facility]. Complications: NoneCardiac Rehab Consult needed: NoConfirmed administered medications: Yes tsites 12:33 PM Isovue 370 - 200ml,1 Bottle(s) used. tsites 12:33 PM Sheath left in place to be pulled on floor/holding areaV+Pad tsites 12:33 PM Estimated Blood Loss: minimal tsites 12:34 PM Post ECG NSR tsites 12:34 PM Post Blood Pressure 121/74 tsites 12:35 PM 12:34 Post Pulses Bilateral radial 1+ tsites 12:35 PM Information taught Cardiac Cath and V+ Pad tsites 12:35 PM Education needs Procedure, Plan of Care, and Responsibilities of Patient in Care tsites 12:35 PM Learning barriers :None tsites 12:36 PM Education Methods Verbal tsites 12:36 PM Education evaluation Able to repeat information tsites 12:36 PM Site status No bleeding/hematoma - Rt Groin as reported by Marco Goodwin RT (R) at 12:36 tsites 12:36 PM Opsite applied tsites 12:36 PM Delay to floor No tsites 12:36 PM Patient out of room: 12:36 tsites 12:36 PM Family placed in consult room. tsites 12:37 PM Cardiothoracic surgeon consulted by physician tsites 12:45 PM Time: 12:28 Patient comfortable and pain free: Yes tsites 12:45 PM Time: 12:28LOC: 3 = Answers simple questions/follows commands tsites 12:46 PM Report given to ricco HOWELL Pt taken to ICU Room #8. 12:46 tsites Complications Complication None Hemodynamics Pressures Site Systolic/A Wave Diastolic/V Wave Mean AO 115 54 85 AO 99 62 79 AO 113 17 65 LV 92 22 38 LV 99 12 31 LV 91 7 19 AO 90 44 64 Post Procedure Information Blood Pressure: 121/74 mmHg Rhythm: NSR Post procedural instructions were given Closure Device Time Device Success/Fail 01/25/2018 12:49:00 PM Manual Compression Site Checks Time Location Status Staff Sheath In? Note 12:36 PM Rt Groin No bleeding/hematoma Marco Goodwin RT (R) Pulses Time Site Pre-Procedure Post-Procedure Note 12:34:00 PM Bilateral radial 1+ Updated by Vonnie Guzman RT (R) on 01/25/2018 12:55:06 PM Vonnie Guzman RT electronically signed on 01/25/2018 1:02:12 PM with status of Final
[2018-01-25] MEDS ORDERED: D5% in Water 1,000 ML IVC PRN (13:19)
[2018-01-25] MEDS ORDERED: *HR* Dextrose 50 % in Water (Syg) 50 ML SYRINGE IVP PRN (13:19)
[2018-01-25] MEDS ORDERED: Dextrose Gel 15 GM/37.5 ML TUBE PO PRN ×2 (13:19)
--- NOTE | 2018-01-25 13:26 | Cardiology History & Physical ---
Date of Encounter: 01/25/18 Time of Encounter: 13:30 Assessment and Plan (1) STEMI (ST elevation myocardial infarction) Current Visit: Yes Status: Acute A/R/B of emergent LH Cdiscussed with her including risk of , CVA, CABG, bleeding. Pt aware and agreeable with proceeding. EF assessment to be completed. SSI QID FS. Aspirin, brilinta and heparin given. Labs resulted after cath - anemia will need to be worked up and ANDRESSA - gentle hydration The assessment and plan as outlined above was discussed with the patient and/or family members who expressed understanding and agreement. All questions were answered. Qualifiers: Involved coronary artery: other inferior wall coronary artery Qualified Code(s): I21.19 - ST elevation (STEMI) myocardial infarction involving other coronary artery of inferior wall (2) Acute kidney failure Current Visit: Yes Status: Acute The assessment and plan as outlined above was discussed with the patient and/or family members who expressed understanding and agreement. All questions were answered. Qualifiers: Acute renal failure type: unspecified Qualified Code(s): N17.9 - Acute kidney failure, unspecified (3) Anemia Current Visit: Yes Status: Acute The assessment and plan as outlined above was discussed with the patient and/or family members who expressed understanding and agreement. All questions were answered. Qualifiers: Anemia type: unspecified type Qualified Code(s): D64.9 - Anemia, unspecified (4) Diabetes Current Visit: No Status: Chronic The assessment and plan as outlined above was discussed with the patient and/or family members who expressed understanding and agreement. All questions were answered. Qualifiers: Diabetes mellitus type: type 2 Diabetes mellitus jail insulin use: with jail use Diabetes mellitus complication status: without complication Qualified Code(s): E11.9 - Type 2 diabetes mellitus without complications; Z79.4 - nursing home assistant administrator (current) use of insulin; Z79.4 - nursing home assistant administrator ( current) use of insulin; Z79.4 - [facility] (current) use of insulin; Z79.4 - [facility] (current) use of insulin (5) CVA (cerebral vascular accident) Current Visit: No Status: Acute The assessment and plan as outlined above was discussed with the patient and/or family members who expressed understanding and agreement. All questions were answered. Qualifiers: CVA mechanism: stenosis Precerebral and cerebral artery: posterior cerebral artery Laterality of affected vessel: right Qualified Code(s): I63.531 - Cerebral infarction due to unspecified occlusion or stenosis of right posterior cerebral artery History of Present Illness Chief complaint: chest pain HPI: Ms. Gillette is a 77 year old female with history of diabetes, and no previous cardiac history presenting with hypoxia and bluish discoloration via EMS. She denies chest discomfort but daughter states she had chest discomfort at some unspecified time previously per report. EKG shows inferior STEMI and chemical laboratory tester team activated. Patient is minimally responsive to questions at this time. Past Med Surg Social Fam HX - Past Medical History Medical history: CVA Additional medical history: HTN. HIGH CHOLESTEROL. LEFT-SIDED WEAKNESS Psychiatric history: no psych history - Past Surgical History Surgical History: - Social History Smoking Status: Never smoker Smokeless Tobacco Status: No Alcohol use: none Drug use: none - Family History Brother Hx Family Endocrine Disorder: Yes (DM) Medications and Allergies Aspirin [Lo-Dose Aspirin EC] 81 mg PO DAILY 03/25/17 [History] Atorvastatin [Lipitor] 20 mg PO HS tablet 03/29/17 [Rx] Clopidogrel [Plavix] 75 mg PO DAILY tablet 03/29/17 [Rx] Docusate [Colace] 100 mg PO DAILY PRN 04/24/17 [History] Insulin LISPRO [Humalog] 2 - 7 unit SQ ACHS 04/24/17 [History] Melatonin 5 mg PO HS PRN 04/24/17 [History] HYDROcodone/Acet 5/325 mg [[place] 5-325 mg] 1 tab PO Q6HR PRN #16 tablet [Rx] Insulin DETEMIR [Levemir] 15 unit SQ BID 30 Days 05/02/17 [Rx] 3 Allergy/AdvReac Type Severity Reaction Status Date / Time No Known Allergies Allergy Verified 05/13/17 14:58 ROS unobtainable: due to mental status All Systems Review: The remainder of the systems were reviewed and are negative Physical Examination Vital Signs, Last 4 Hours Temp Pulse Resp BP Pulse Ox 01/25/18 12:50 97.4 F L 81 25 105/62 01/25/18 12:07 16 125/74 01/25/18 12:03 84 16 128/80 98 General: No Apparent Distress HEENT: Atraumatic, Normocephaly Neck: No JVD Cardiac: Reg Rate and Rhythm Lungs: Normal Breath Sounds Neuro: No focal deficits noted, Other (lethargic) Abdomen: Soft, Non-Tender Skin: No rashes noted on visualized skin Musculoskeletal: No Chest Wall Tenderness Extremities: No Edema Results 01/25/18 11:47 01/25/18 11:47 - EKG Interpretation EKG results cardiology: personally reviewed, sinus rhythm (inferior current of injury)
[2018-01-25] MEDS ORDERED: *HR* Atropine Sulfate 1 MG/10 ML SYRINGE ONE (14:21)
[2018-01-25] MEDS: Insulin LISPRO 300 UNITS/3 ML VIAL SQ SCH ×2 (17:27→20:27)
--- NOTE | 2018-01-25 20:18 | Event Note ---
Date of Encounter: 01/26/18 Time of Encounter: 12:00 - Cardiology Event Note Inferior ST elevation. 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 No occluded major vessels, RCA has DIMITRY [address] surgery consult, heparin drip, hemoccult, trend hemoglobin. Patient is frail.
[2018-01-25] MEDS: Insulin DETEMIR 100 UNIT/ML X5UNITS SQ SCH (20:28)
[2018-01-25] MEDS ORDERED: 0.9 % Sodium Chloride 1,000 ML IVC SCH (20:30)
[2018-01-25] MEDS: Ipratropium/Albuterol Neb 3 ML IH SCH (23:32)
[2018-01-26] MEDS: *HR* HYDROcodone/Acet 5/325 mg TABLET PO PRN (02:00)
--- NOTE | 2018-01-26 02:54 | Event Note ---
Date of Encounter: 01/26/18 Time of Encounter: 02:51 Notified by RN that patient is having difficulty breathing and desaturating every time she tries to fall sleep. Her SPO2 is 94% on 15 L oxymask. Patient is restless and calls out "help me" multiple times. Patient is awake, pleasantly confused, able to follow commands, has bilateral crackles on exam, intercostal retractions, and mild respiratory distress on 15 L oxymask. Patient is currently on IV fluids for ANDRESSA. Will hold IV fluids for now. Unable to give Lasix due to ANDRESSA and hypotension. Repeat ABG was negative for hypercapnia. Patient has no CODE STATUS order in the computer and does not have an advanced directive in her chart. We will treat her as a full code for the time being and trial BiPAP. Will continue to closely monitor for signs of respiratory decompensation and possible need for emergent intubation. Sitter is at bedside. Last Vital Signs Temp 97.6 F 01/25/18 23:59 Pulse 75 01/26/18 03:00 Resp 24 01/26/18 03:00 BP 102/62 01/26/18 03:00 Pulse Ox 94 01/26/18 03:00 01/25/18 01/26/18 12:02 03:05 ABG pH 7.34 7.43 ABG pCO2 35 29 L ABG pO2 66 L 64 L ABG HCO3 19 L 20 L ABG Total CO2 20 20 ABG O2 Saturation 92 L 93 L ABG Base Excess -6 L -4 L
[2018-01-26 03:08] LABS: ABG Base Excess -4 mEq/L (-2 to 3); ABG HCO3 20 mEq/L (21-27); ABG Oxygen Saturation 93 % (95-98); ABG PCO2 29 mmHg (35-45); ABG PH 7.43 pH Units (7.32-7.45); ABG PO2 64 mmHg (85-104); ABG TCO2 20 mEq/L (20-26)
[2018-01-26] MEDS: Ipratropium/Albuterol Neb 3 ML IH SCH ×5 (03:22→20:04)
[2018-01-26 05:24] LABS: Basophils # 0.1 K/mcL (0.0-0.2); Basophils % 0.4 %; Eosinophils % 0.3 %; Hematocrit 26.4 % (35.3-44.9); Hemoglobin 8.3 g/dL (11.5-15.4); Immature Granulocytes % 0.4 % (0-4); Lymphocytes % 8.8 %; Mean Corpuscular HGB Conc 31.4 g/dL (31.6-35.5); Mean Corpuscular Hemoglobin 26.6 pg (28.0-33.3); Mean Corpuscular Volume 84.6 fL (83.0-100.0); Mean Platelet Volume 10.8 fL (9.4-12.4); Monocytes % 8.3 %; Neutrophils # 9.7 K/mcL (1.6-8.9); Platelet Count 282 K/mcL (140-400); Red Blood Count 3.12 M/mcL (3.82-4.97); Red Cell Distribution Width 15.9 % (11.5-14.5); Segmented Neutrophils % 81.8 %
[2018-01-26 05:42] LABS: BUN/Creatinine Ratio 47 (6-26); Blood Urea Nitrogen 47 mg/dL (8-23); Calcium 8.2 mg/dL (8.6-10.3); Carbon Dioxide 20 mEq/L (23-29); Chloride 103 mEq/L (98-107); Glucose 190 mg/dL (70-105); Osmolality,Calculated 291 (280-300); Potassium 4.1 mEq/L (3.5-5.1); Sodium 132 mEq/L (136-145); eGFR For Non-African Americans 54 (> 60)
[2018-01-26] MEDS: Insulin DETEMIR 100 UNIT/ML X5UNITS SQ SCH ×2 (08:59→21:39)
[2018-01-26] MEDS: Insulin LISPRO 300 UNITS/3 ML VIAL SQ SCH ×4 (09:00→21:39)
[2018-01-26] MEDS ORDERED: Perflutren Lipid Microsphere 1.3 ML in 0.9 % Sodium Chloride 8.7 ML IVP ONE (09:29)
--- NOTE | 2018-01-26 09:38 | Cardiothoracic Consult Note ---
Date of Encounter: 01/26/18 Time of Encounter: 09:33 Assessment and Plan (1) STEMI (ST elevation myocardial infarction) Current Visit: Yes Status: Acute The assessment and plan as outlined above was discussed with the patient and/or family members who expressed understanding and agreement. All questions were answered. The patient has decreased ventricular function with triple vessel disease. Her LAD and circumflex coronary arteries are small and diffusely diseased and looked to be poor candidates for bypass grafts. She is presently quite ill and not a candidate for open heart surgery. She is requiring large amounts of inspired oxygen and may need to be reintubated. She has had 2 previous strokes with a resulting left hemiplegia. Medical therapy seems to be the best option at this point. Qualifiers: Involved coronary artery: other inferior wall coronary artery Qualified Code(s): I21.19 - ST elevation (STEMI) myocardial infarction involving other coronary artery of inferior wall - History of Present Illness History of present illness: Ms. Gillette is a 77 year old female The patient is a 77-year-old female who presented with hypoxia and cyanosis. Troponin was positive at 11.67. EKG revealed an inferior myocardial infarction. Chest x-ray revealed pulmonary edema. Cardiac catheterization revealed an ejection fraction of 30-35%. She had a 99% LAD lesion with a small diffusely diseased distal vessel. The circumflex had a 99% lesion with a small diffusely diseased distal vessel. The right coronary artery had a 90% lesion with a bypassable posterior descending branch. The patient has had 2 previous strokes with a large stroke in March 2017. This resulted in left hemiplegia and left visual field cuts. The patient is presently quite ill. She is on 10 L oxygen. She is confused intermittently. Past medical history is positive for diabetes on insulin, hypertension and hypercholesterolemia. Her medications include insulin and Plavix. No known allergies. Social history. She lives in [facility] with her family. She used to smoke, but quit many years ago. Does not drink alcohol. Review of systems is notable for no saphenous vein varicosities or strippings. Past Med Surg Social Fam HX - Past Medical History Medical history: CVA Additional medical history: HTN. HIGH CHOLESTEROL. LEFT-SIDED WEAKNESS Psychiatric history: no psych history - Past Surgical History Surgical History: - Social History Smoking Status: Never smoker Smokeless Tobacco Status: No Alcohol use: none Drug use: none - Family History Brother Hx Family Endocrine Disorder: Yes (DM) Medications and Allergies Aspirin [Lo-Dose Aspirin EC] 81 mg PO DAILY 03/25/17 [History] Atorvastatin [Lipitor] 20 mg PO HS tablet 03/29/17 [Rx] Clopidogrel [Plavix] 75 mg PO DAILY tablet 03/29/17 [Rx] Docusate [Colace] 100 mg PO DAILY PRN 04/24/17 [History] Insulin LISPRO [Humalog] 2 - 7 unit SQ ACHS 04/24/17 [History] Melatonin 5 mg PO HS PRN 04/24/17 [History] HYDROcodone/Acet 5/325 mg [[place] 5-325 mg] 1 tab PO Q6HR PRN #16 tablet [Rx] Insulin DETEMIR [Levemir] 15 unit SQ BID 30 Days 05/02/17 [Rx] 3 Allergy/AdvReac Type Severity Reaction Status Date / Time No Known Allergies Allergy Verified 05/13/17 14:58 All Systems Review: The remainder of the systems were reviewed and are negative Physical Examination Vital Signs, Last 4 Hours Temp Pulse Resp BP Pulse Ox 01/26/18 08:00 97.2 F L 85 21 126/79 100 01/26/18 07:22 27 129/84 95 01/26/18 07:00 80 22 129/84 100 01/26/18 06:00 79 18 114/67 100 The patient has a left visual field cut. No oral lesions. Neck is supple. Trachea in the midline. No thyromegaly or carotid bruits. Lungs have scattered rales at the bases. Heart is in a regular rate and rhythm. No murmurs, gallops or rubs. Abdomen is benign. She is status post 3 sections. No tenderness, rebound or guarding. Extremities without edema. No saphenous vein varicosities or strippings. The patient is intermittently confused. She has a left visual field cut. She has a left hemiplegia. Results 01/26/18 05:05 01/26/18 05:05 Lab Results, Last 24 hours 01/26/18 01/26/18 05:05 05:05 WBC 11.8 H Hgb 8.3 L Hct 26.4 L Plt Count 282 Sodium 132 L Potassium 4.1 Chloride 103 Carbon Dioxide 20 L BUN 47 H Creatinine 1.00 Glucose 190 H Calcium 8.2 L Consult Discharge Plan - Plan Referrals: Omari Holcomb DO [Primary Care Provider] -
[2018-01-26] MEDS ORDERED: Perflutren Lipid Microsphere 2 ML VIAL ONE (09:42)
[2018-01-26] MEDS ORDERED: Furosemide 40 MG/4 ML VIAL IVP STA (09:46)
[2018-01-26] MEDS ORDERED: *HR* Promethazine 25 MG/ML VIAL IVP PRN (10:31)
[2018-01-26] MEDS: Aspirin 81 MG TAB.CHEW PO SCH (10:49)
--- NOTE | 2018-01-26 11:56 | Palliative - Consult Note ---
Date of Encounter: 01/26/18 Time of Encounter: 10:20 - Assessment and Plan (1) Nausea & vomiting Current Visit: Yes Status: Acute Assessment and plan: Patient reports continued "upset stomach" even after taken Zofran. Ordered Phenergan IVP PRN. Qualifiers: Vomiting type: unspecified Vomiting Intractability: unspecified Qualified Code(s): R11.2 - Nausea with vomiting, unspecified (2) Goals of care, counseling/discussion Current Visit: Yes Status: Acute Assessment and plan: Conducted goals of care meeting at patient's bedside with patient and her two daughters (Arianne and Roberta). Patient opted to mostly listen to conversation. Patient's daughters report they planned to hire a 24/7 private duty infant caregiver at home upon returning home. Desire to bring patient home and care for her at home. Verbalized understanding of the lack of treatment options. Expressed desire for home health or hospice to get additional support in home. Spoke with Estrellita Torres at [facility]; patient does not live in area covered by [facility]. Informed two daughters of lack of coverage by [facility]; patient's daughters chose Hospice. Patient's spouse is not present at bedside, as he is at home getting his MPOA forms and will be returning. Patient desires no decisions be made until Returns. Inquired any questions in regards to CODE STATUS discussion. Unsure of risks associated with CPR, reviewed risk of broken bones, internal organ damage, and requirement of frequency for effective use. Patient's daughters expressed desire to have patient no CPR or inbutation; awaiting husbands arrival and review of information prior to making any final discharge planning or CODE STATUS completion. Explained the difference between DNRCCA/DNI versus DNRCC; daughters verbalized understanding. CODE STATUS to remain FULL CODE until after repeat family meeting with in attendance. [id number]: Conducted family meeting with patient's , daughters (Susanne) and personal friend. Patient expressed desire to have all parties in room. Discussed goals of care. Family requested to discharge home with [facility] hospice at time of discharge. Family has requested to discharge on as they need the additional time to arrange 24/7 care. Family changed CODE STATUS to DNRCC. Expressed desire for patient to be kept comfortable. Paged Dr. Folaramni to give clinical update. Will order Medications for comfort. Spend 90 minutes with goals of care, coordination of discharge planning, and advanced care planning with patient, with a minimum of 60 minutes being spent at patients bedside. (3) Diabetes Current Visit: No Status: Chronic Assessment and plan: Glucose 190. Manage per Primary team. Insulin ordered. 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 (5) STEMI (ST elevation myocardial infarction) Current Visit: Yes Status: Acute Assessment and plan: Cardiothoracic consult appreciated. No surgical option available for patient. Manage symptomatically. Family has requested to stop heparin drip. Desires to go home with Hospice. Qualifiers: Involved coronary artery: other inferior wall coronary artery Qualified Code(s): I21.19 - ST elevation (STEMI) myocardial infarction involving other coronary artery of inferior wall Palliative-CN HPI - Data of Consult Patient: new to practice Consult date: 01/26/18 Requesting Physician: Walt Lazaro MD Primary Care Provider: Omari Holcomb, - Consult Narrative Palliative Care/Comfort Measures: Palliative care Reason for consult: Multivessel CAD/Stemi with no surgical/cardiac intervention ; goals of care. History of present illness: Ms. Gillette is a 77 year old female Arrived to [facility] on 01/25/18, from home via EMS. EMS transmitted EKG concerning for inferior STEMI with ST elevation in lead 3, aVF, reciprocal changes in ST depression in lead 1, aVL. STEMI alert called prior to arrival. Troponin 11.67. PMH: CVAs and DM. Patient denied chest pain; reported vomiting. 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 There is a 99% stenosis in the Mid LAD, 70% stenosis in the Distal LAD, and 60-70% stenosis in the diagonal. Chest x-ray showed Pulmonary edema and pleural effusions. Cardiac Consultation note reports patient arriving hypoxic and bluish in color. At approximately 3 am, patient noted to have increased difficulty breathing, mild respiratory distress with 15L oxymask in place. Patients oxygen saturation decreased to 84% a few times since admission. Cardiothoracic consultation completed; recommend medical therapy, no surgical intervention available. No CODE STATUS has been ordered for patient as of date. Palliative care consulted for multivessel CAD/STEMI with no surgical or cardiac intervention; goals of care discussion. Patient lying in bed with eyes open upon arrival for assessment. Patient is alert and oriented times 3; confused to details. No family present upon initial assessment; however, received report from Lana HOWELL that patients family is waiting in the waiting room, post meeting with Dr. Salamanca. Patient denies pain, anxiety, and dyspnea. Patients oxygen saturation dropping to 80s during assessment; oxygen in place. Patient complaining of nausea, unable to eat; has Zofran ordered, not helping. Introduced self to family and had them (Roberta and Arianne, Daughters) return to bedside for discussion per patients desires. CC: Walt Lazaro MD Past Med Surg Social Fam HX - Past Medical History Medical history: CVA Additional medical history: HTN. HIGH CHOLESTEROL. LEFT-SIDED WEAKNESS Psychiatric history: no psych history - Past Surgical History Surgical History: - Social History Smoking Status: Never smoker Smokeless Tobacco Status: No Alcohol use: none Drug use: none - Family History Brother Hx Family Endocrine Disorder: Yes (DM) Medications and Allergies Atorvastatin [Lipitor] 20 mg PO HS tablet 03/29/17 [Rx] Clopidogrel [Plavix] 75 mg PO DAILY tablet 03/29/17 [Rx] Docusate [Colace] 100 mg PO DAILY PRN 04/24/17 [History] Melatonin 5 mg PO HS PRN 04/24/17 [History] Aspirin [Lo-Dose Aspirin EC] 81 mg PO DAILY 01/26/18 [History] Celecoxib [Celebrex] 200 mg PO DAILY 01/26/18 [History] Diclofenac Sodium [Voltaren] 75 mg PO BID 01/26/18 [History] Flavoxate HCl 100 mg PO TID 01/26/18 [History] Furosemide [Lasix] 20 mg PO DAILY 01/26/18 [History] Insulin ASPART [NovoLOG] 15 unit SQ TIDWM 01/26/18 [History] Insulin DETEMIR [Levemir Flextouch] 50 unit SQ QAM 01/26/18 [History] 3 Allergy/AdvReac Type Severity Reaction Status Date / Time No Known Allergies Allergy Verified 01/26/18 12:37 - Constitutional Constitutional ROS PAL: no lethargy - Cardiovascular Cardiovascular ROS: chest pain (prior to arrival to ER. Denies currently.), edema (Right hand), no leg edema - Respiratory Respiratory: no dyspnea - Gastrointestinal Gastrointestinal: nausea, vomiting, no abdominal pain - Musculoskeletal Musculoskeletal ROS IM: no back pain - Integumentary ROS Integumentary: dry skin - Neurological Neurological ROS: confusion (to details. Patient feels more comfortable with family present at bedside.) - Psychiatric Psychiatric general PM: no anxiety Palliative Care-Exam - Constitutional Vitals: Temp Pulse Resp BP Pulse Ox 97.2 F L 81 24 112/74 92 01/26/18 08:00 01/26/18 10:00 01/26/18 11:05 01/26/18 10:00 01/26/18 11:05 General appearance: Present: cooperative. Absent: no acute distress - Head Head Exam: Present: atraumatic, normal inspection - Eye Eye exam: Present: EOMI, normal appearance. Absent: periorbital swelling, periorbital tenderness - ENT ENT exam: Present: mucous membranes moist, normal external ear exam - Expanded ENT Exam Mouth Exam: Absent: drooling - Neck Neck exam: Present: full ROM - Respiratory Respiratory exam: Present: CTAB. Absent: accessory muscle use, respiratory distress - Cardiovascular Cardiovascular exam: Present: rubs, +S1, +S2 - Expanded Cardiovascular Exam Peripheral pulses: 2+: Radial (L), Radial (R), Posterior Tibialis (L), Posterior Tibialis (R), Dorsalis Pedis (L) PM, Dorsalis Pedis (R) PM - GI/Abdominal Exam GI/Abdominal exam: Present: hyperactive bowel sounds, soft. Absent: tenderness - Rectal Rectal exam: Present: deferred - Extremities Exam Extremities exam: Absent: calf tenderness, full ROM, pedal edema, tenderness Additional comments: Right sided weakness. - Neurological Exam Neurological exam: Present: alert, altered, oriented X3 - Expanded Neurological Exam Patient oriented to: Present: person, place, time (Unsure of year; aware of president) Coma Scale Eye Opening: To Voice Coma Scale Motor Response: Obeys Commands Coma Scale Verbal Response: Oriented Coma Scale Total: 14 - Psychiatric Psychiatric exam: Present: normal affect, normal mood - Skin Skin exam: Present: dry, intact, normal color, warm Internal Medicine - CN: Reslt - Labs CBC & Chem 7: 01/26/18 05:05 01/26/18 05:05 Labs: Short CBC 01/26/18 Range/Units 05:05 WBC 11.8 H (4.3-11.1) K/mcL Hgb 8.3 L (11.5-15.4) g/dL Hct 26.4 L (35.3-44.9) % Plt Count 282 (140-400) K/mcL Neutrophils # 9.7 H (1.6-8.9) K/mcL BMP 01/26/18 05:05 Sodium 132 L Potassium 4.1 Chloride 103 Carbon Dioxide 20 L BUN 47 H Creatinine 1.00 Glucose 190 H Calcium 8.2 L - ABG Interpretation ABG results: ABG ABG pH 7.43 pH Units (7.32-7.45) 01/26/18 03:05 ABG pCO2 29 mmHg (35-45) L 01/26/18 03:05 ABG pO2 64 mmHg (85-104) L 01/26/18 03:05 ABG O2 Saturation 93 % (95-98) L 01/26/18 03:05 PT/INR, D-dimer PT 11.4 Seconds (9.4-12.1) 01/25/18 11:53 Consult Discharge Plan - Plan Referrals: Omari Holcomb DO [Primary Care Provider] - Palliative Quality Palliative Quality: Screen for Code Status: Yes, Screen for Goals of Care: Yes, Screen for Pain: Yes, If Pain Regimen Started, Initiate Bowel Regimen: NA, Screen for Nausea/Vomitting: Yes
--- NOTE | 2018-01-26 12:42 | Internal Medicine Consult Note ---
Date of Encounter: 01/26/18 Time of Encounter: 12:30 - Assessment and plan (1) STEMI (ST elevation myocardial infarction) Current Visit: Yes Status: Acute Assessment and plan: Pt came in with acute hypoxic respiratory failure and bluish discoloration. Troponins were elevated and she had EKG changes suggestive of STEMI Cardiac catheterization revealed an ejection fraction of 30-35%. She had a 99% LAD lesion with a small diffusely diseased distal vessel. The circumflex had a 99% lesion with a small diffusely diseased distal vessel. The right coronary artery had a 90% lesion with a bypassable posterior descending branch. Not a candidate for stent placement or CABG per cardiology and cardiothoracic surgery respectively Continue medical management with aspirin, statin and anticoagulation per cardio recs Palliative care consult Qualifiers: Involved coronary artery: other inferior wall coronary artery Qualified Code(s): I21.19 - ST elevation (STEMI) myocardial infarction involving other coronary artery of inferior wall (2) Acute respiratory failure with hypoxia Current Visit: Yes Status: Acute Assessment and plan: Likely secondary to STEMI and acute systolic CHF. On high flow oxygen. Continue lasix Wean off oxygen as tolerated (3) Acute systolic (congestive) heart failure Current Visit: Yes Status: Acute Assessment and plan: Likely secondary to ischemia. Echo showed new EF of 35%. Continue lasix and management per cardiology (4) Acute kidney failure Current Visit: Yes Status: Acute Assessment and plan: Possibly secondary to congestion. Improved with lasix Qualifiers: Acute renal failure type: unspecified Qualified Code(s): N17.9 - Acute kidney failure, unspecified (5) Goals of care, counseling/discussion Current Visit: Yes Status: Acute Assessment and plan: Palliative care consulted and patient will be made DNR. Plan for discharge home with hospice on per paliiative care (6) CVA (cerebral vascular accident) Current Visit: No Status: Acute Assessment and plan: Hx of CVA with hemiplegia. Continue aspirin and statin Qualifiers: CVA mechanism: stenosis Precerebral and cerebral artery: posterior cerebral artery Laterality of affected vessel: right Qualified Code(s): I63.531 - Cerebral infarction due to unspecified occlusion or stenosis of right posterior cerebral artery (7) Diabetes Current Visit: No Status: Chronic Assessment and plan: Continue insulin. 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: with termite control service representative use Diabetes mellitus complication status: without complication Qualified Code(s): E11.9 - Type 2 diabetes mellitus without complications; Z79.4 - correction (current) use of insulin (8) DVT prophylaxis Current Visit: Yes Status: Acute Assessment and plan: On heparin drip - Time Spent With Patient Total time spent is greater than 50% in coordination of care (as documented) at patient's floor/unit and/or counseling patient: Internal Medicine - CN: HPI - Data of Consult Patient: new to practice Requesting Physician: Walt Lazaro MD - Consult Narrative Reason for consult: STEMI not a candidate for stent placement or CABG History of present illness: Ms. Gillette is a 77 year old female with history of diabetes,CVA s/p hemiplegia and visual fielfd deficits history presenting with hypoxia and bluish discoloration via EMS. EMS transmitted EKG concerning for inferior STEMI with ST elevation in lead 3, aVF, reciprocal changes in ST depression in lead 1 , aVL. STEMI alert called prior to arrival. Troponin 11.67. She denies chest discomfort but daughter states she had chest discomfort at some unspecified time previously per report. EKG shows inferior STEMI and slab inspector team activated. She was admitted to the ICU under the cardiology service for a STEMI and was taken straight to cath. Cardiac catheterization revealed an ejection fraction of 30-35%. She had a 99% LAD lesion with a small diffusely diseased distal vessel. The circumflex had a 99% lesion with a small diffusely diseased distal vessel. The right coronary artery had a 90% lesion with a bypassable posterior descending branch. Cardiology determined she is not a candidate for stent placement and placed her on a heparin drip and consulted CT surgery. She has been seen by CT surgery who have determined she is a poor candidate for CABG. Medicine service is being consulted by cardiology for medical management as well for transfer to the medical service for her care. Past Med Surg Social Fam HX - Past Medical History Medical history: CVA Additional medical history: HTN. HIGH CHOLESTEROL. LEFT-SIDED WEAKNESS Psychiatric history: no psych history - Past Surgical History Surgical History: - Social History Smoking Status: Never smoker Smokeless Tobacco Status: No Alcohol use: none Drug use: none - Family History Brother Hx Family Endocrine Disorder: Yes (DM) - Constitutional Constitutional: as per HPI - Cardiovascular Cardiovascular ROS IM: chest pain - Respiratory Respiratory: dyspnea - Gastrointestinal Gastrointestinal: as per HPI - Musculoskeletal Musculoskeletal ROS IM: as per HPI - Neurological Neurological ROS: as per HPI Internal Medicine - CN: Meds Atorvastatin [Lipitor] 20 mg PO HS tablet 03/29/17 [Rx] Clopidogrel [Plavix] 75 mg PO DAILY tablet 03/29/17 [Rx] Docusate [Colace] 100 mg PO DAILY PRN 04/24/17 [History] Melatonin 5 mg PO HS PRN 04/24/17 [History] Aspirin [Lo-Dose Aspirin EC] 81 mg PO DAILY 01/26/18 [History] Celecoxib [Celebrex] 200 mg PO DAILY 01/26/18 [History] Diclofenac Sodium [Voltaren] 75 mg PO BID 01/26/18 [History] Flavoxate HCl 100 mg PO TID 01/26/18 [History] Furosemide [Lasix] 20 mg PO DAILY 01/26/18 [History] Insulin ASPART [NovoLOG] 15 unit SQ TIDWM 01/26/18 [History] Insulin DETEMIR [Levemir Flextouch] 50 unit SQ QAM 01/26/18 [History] 3 Allergy/AdvReac Type Severity Reaction Status Date / Time No Known Allergies Allergy Verified 01/26/18 12:37 Hospitalist - CN: Exam - Constitutional Vitals: Temp Pulse Resp BP Pulse Ox 97.1 F L 90 21 119/68 96 01/26/18 11:00 01/26/18 12:00 01/26/18 12:00 01/26/18 12:00 01/26/18 12:00 General appearance IM: Present: A&O X 3 Exam: NAD - Head Head exam: Present: atraumatic - Eye Eye exam: Present: normal appearance, PERRL - Respiratory Respiratory exam: Present: decreased breath sounds, rales, respiratory distress - Cardiovascular Cardiovascular exam IM: Present: +S1, +S2 - GI/Abdominal GI/Abdominal exam IM: Present: normal bowel sounds, soft - Extremities Exam Extremities exam IM: Present: pedal edema - Neurological Exam Neurological exam: Present: alert, CN II-XII intact, oriented X3 Internal Medicine - CN: Reslt - Labs CBC & Chem 7: 01/26/18 05:05 01/26/18 05:05 Labs: Short CBC 01/26/18 Range/Units 05:05 WBC 11.8 H (4.3-11.1) K/mcL Hgb 8.3 L (11.5-15.4) g/dL Hct 26.4 L (35.3-44.9) % Plt Count 282 (140-400) K/mcL Neutrophils # 9.7 H (1.6-8.9) K/mcL BMP 01/26/18 05:05 Sodium 132 L Potassium 4.1 Chloride 103 Carbon Dioxide 20 L BUN 47 H Creatinine 1.00 Glucose 190 H Calcium 8.2 L - ABG Interpretation ABG results: ABG ABG pH 7.43 pH Units (7.32-7.45) 01/26/18 03:05 ABG pCO2 29 mmHg (35-45) L 01/26/18 03:05 ABG pO2 64 mmHg (85-104) L 01/26/18 03:05 ABG O2 Saturation 93 % (95-98) L 01/26/18 03:05 PT/INR, D-dimer PT 11.4 Seconds (9.4-12.1) 01/25/18 11:53 Consult Discharge Plan - Plan Referrals: Omari Holcomb DO [Primary Care Provider] -
[2018-01-26] MEDS ORDERED: MORPHINE SUL Oral CONC 10 MG/0.5 ML ORAL.SYG SL PRN (15:40)
[2018-01-26] MEDS: *HR* LORazepam Oral Conc 2 MG/ML SL SCH ×3 (16:42→23:25)
--- NOTE | 2018-01-26 17:54 | Cardiology Progress Note ---
Date of Encounter: 01/26/18 Time of Encounter: 09:00 Assessment and Plan (1) STEMI (ST elevation myocardial infarction) Current Visit: Yes Status: Acute Not a candidate for PCI as she has diffuse disease with small vessels. Not candidate for surgery because of frailty and comorbidities. Medical management. Continue IV heparin to therapeutic PTT for at least 48hrs. Continue aspirin 81mg daily, plavix 75mg daily, B andrew, high intensity statin. Recommend Hospitalist and Palliative consult to address goals of care. Qualifiers: Involved coronary artery: other inferior wall coronary artery Qualified Code(s): I21.19 - ST elevation (STEMI) myocardial infarction involving other coronary artery of inferior wall (2) Acute systolic (congestive) heart failure Current Visit: Yes Status: Acute Patient with clinical heart failure and vascular congestion on CXR. IV lasix 40mg stat., if serum Cr improves, then continue 40mg daily. Strict I and Os Low salt fluid restricted diet. [place] B andrew once euvolemic Can start lisinopril 5mg daily once renal indices improve and BP allows./ Discussion w patient/family: The assessment and plan as outlined above was discussed with the patient and/or family members who expressed understanding and agreement. All questions were answered. Thank you for involving us in the care of your patient. Please call with any questions. Subjective Principal diagnosis: STEMI Interval history: Patient presented with inferior ST elevation. Cardiac cath showed severe multivessel CAD with severe diabetic distal disease. Required Bipap overnight for respiratory failure. Seen by CT surgery - not a candidate for CABG on account of frailty and multiple comorbidities Objective Vital Signs, Last 4 Hours Pulse Resp BP Pulse Ox 01/26/18 17:03 26 96 01/26/18 15:00 88 26 112/94 96 01/26/18 14:00 94 25 119/87 95 General: Conversant, No Apparent Distress HEENT: Atraumatic Neck: Other (Mild JVD) Cardiac: Reg Rate and Rhythm, Normal S1 and S2, No Murmur Lungs: Other (Bibasilar rales, no wheezes) Neuro: Alert and responsive, No focal deficits noted Abdomen: Soft, Non-Tender Extremities: Other (Trace pedal edema) Results 01/26/18 05:05 01/26/18 05:05 Lab Results 01/26/18 01/26/18 05:05 05:05 WBC 11.8 H Hgb 8.3 L Hct 26.4 L Plt Count 282 Sodium 132 L Potassium 4.1 Chloride 103 Carbon Dioxide 20 L BUN 47 H Creatinine 1.00 Glucose 190 H Calcium 8.2 L Consult Discharge Plan - Plan Referrals: Omari Holcomb DO [Primary Care Provider] -
[2018-01-26] MEDS ORDERED: Dexmedetomidine HCl 400 MCG/100 ML MLS IVC ONE (19:48)
[2018-01-26] MEDS: Dexmedetomidine HCl 400 MCG/100 ML MLS IVC SCH (19:55)
[2018-01-26] MEDS: Ipratropium/Albuterol Neb 3 ML IH PRN (23:00)
[2018-01-27] MEDS: Dexmedetomidine HCl 400 MCG/100 ML MLS IVC SCH (01:35)
[2018-01-27] MEDS: *HR* LORazepam Oral Conc 2 MG/ML SL SCH (03:24)
[2018-01-27] MEDS: Ipratropium/Albuterol Neb 3 ML IH PRN (03:33)
[2018-01-27] MEDS: Insulin DETEMIR 100 UNIT/ML X5UNITS SQ SCH ×2 (07:48→23:00)
[2018-01-27] MEDS: Aspirin 81 MG TAB.CHEW PO SCH (07:48)
[2018-01-27] MEDS: Insulin LISPRO 300 UNITS/3 ML VIAL SQ SCH ×4 (07:50→23:00)
[2018-01-27] MEDS ORDERED: *HR* LORazepam Oral Conc 2 MG/ML SL PRN (08:16)
--- NOTE | 2018-01-27 09:39 | Palliative Progress Note ---
Date of Encounter: 01/27/18 Time of Encounter: 09:15 - Assessment and plan (1) Nausea & vomiting Current Visit: Yes Status: Acute Assessment and plan: Patient denies nausea/vomiting. Has received 1 dose Zofran in the last 24 hours , 0 doses of Phenergan; continue PRN. Qualifiers: Vomiting type: unspecified Vomiting Intractability: unspecified Qualified Code(s): R11.2 - Nausea with vomiting, unspecified (2) Goals of care, counseling/discussion Current Visit: Yes Status: Acute Assessment and plan: Met with patient's daughters regarding goals of care at patient's bedside, assured daughters [facility] referral will be called today. Daughters interested in Pneumonia/Flu vaccinations, notified Dr. Foy. Daughters desire DME (Oxygen and Hospital bed) be delivered prior to patient's arrival home, will notify [facility]. (3) Diabetes Current Visit: No Status: Chronic Assessment and plan: Insulin ordered; managed per primary team. Qualifiers: Diabetes mellitus type: type 2 Diabetes mellitus care home insulin use: with care home use Diabetes mellitus complication status: without complication Qualified Code(s): E11.9 - Type 2 diabetes mellitus without complications; Z79.4 - custodial (current) use of insulin (4) Carotid stenosis, bilateral Current Visit: No Status: Chronic Assessment and plan: Patient to be discharged home with [facility] hospice . (5) STEMI (ST elevation myocardial infarction) Current Visit: Yes Status: Acute Assessment and plan: Patient to be discharged home to [facility] hospice . Cardiology consult appreciated. Qualifiers: Involved coronary artery: other inferior wall coronary artery Qualified Code(s): I21.19 - ST elevation (STEMI) myocardial infarction involving other coronary artery of inferior wall (6) Agitation Current Visit: Yes Status: Acute Assessment and plan: Patient had repeat acute episode of agitation overnight, appears Ativan made worse. Discontinue Ativan, add Haldol SL PRN. - Time Spent With Patient Total time spent is greater than 50% in coordination of care (as documented) at patient's floor/unit and/or counseling patient:20 minutes; spending time coordination care and discussing goals of care with Primary Hospitalist and family. - Subjective Interval history: Patient lying in bed with eyes closed upon arrival for assessment. Patient resting comfortably. Patient's two daughters present at bedside. No complaints of pain, anxiety, nausea and vomiting. Patient has received 0 doses of Morphine in the last 24 hours. Patient has received 1 dose Ativan SL in the last 24 hours ; patient suffered increased anxiety/agitation overnight after doing, will discontinue Ativan today. Dr. Foy presented at bedside to discuss goals of care; plan to transition to nursing unit with hospitalist coverage continuing. - Constitutional Vitals: Abnormal lab results WBC 11.8 K/mcL (4.3-11.1) H 01/26/18 05:05 RBC 3.12 M/mcL (3.82-4.97) L 01/26/18 05:05 Hgb 8.3 g/dL (11.5-15.4) L 01/26/18 05:05 Hct 26.4 % (35.3-44.9) L 01/26/18 05:05 MCH 26.6 pg (28.0-33.3) L 01/26/18 05:05 MCHC 31.4 g/dL (31.6-35.5) L 01/26/18 05:05 RDW 15.9 % (11.5-14.5) H 01/26/18 05:05 Neutrophils # 9.7 K/mcL (1.6-8.9) H 01/26/18 05:05 APTT 25.3 Seconds (26.0-36.0) L 01/25/18 11:53 ABG pCO2 29 mmHg (35-45) L 01/26/18 03:05 ABG pO2 64 mmHg (85-104) L 01/26/18 03:05 ABG HCO3 20 mEq/L (21-27) L 01/26/18 03:05 ABG O2 Saturation 93 % (95-98) L 01/26/18 03:05 ABG Base Excess -4 mEq/L (-2 to 3) L 01/26/18 03:05 Sodium 132 mEq/L (136-145) L 01/26/18 05:05 Carbon Dioxide 20 mEq/L (23-29) L 01/26/18 05:05 BUN 47 mg/dL (8-23) H 01/26/18 05:05 Est GFR (Non-Af Amer) 54 (> 60) L 01/26/18 05:05 BUN/Creatinine Ratio 47 (6-26) H 01/26/18 05:05 Glucose 190 mg/dL (70-105) H 01/26/18 05:05 POC Glucose 119 mg/dL (70-99) H 01/26/18 21:09 Calcium 8.2 mg/dL (8.6-10.3) L 01/26/18 05:05 Troponin I 11.67 ng/mL (< 0.04) H* 01/25/18 11:47 General appearance: Present: no acute distress - Head Head exam: Present: atraumatic, normal inspection - Eye Eye exam: Present: normal appearance. Absent: periorbital swelling, periorbital tenderness - ENT ENT exam: Present: mucous membranes moist, normal external ear exam - Neck Neck exam: Present: normal inspection - Respiratory Respiratory exam: Present: rhonchi, wheezes. Absent: accessory muscle use, respiratory distress - Cardiovascular Cardiovascular exam: Present: +S1, +S2 - GI/Abdominal GI/Abdominal exam: Present: normal bowel sounds, soft. Absent: tenderness - Rectal Rectal exam: Present: deferred - Additional comments: Carrion catheter in place; clear yellow urine output. - Extremities Exam Extremities exam: Present: normal inspection, pedal edema (1+). Absent: full ROM (weakness to left side) - Neurological Exam Neurological exam: Present: alert. Absent: oriented X3 - Psychiatric Psychiatric exam: Present: flat affect - Skin Skin exam: Present: dry, intact, warm Palliative Quality Palliative Quality: Screen for Code Status: Yes, Screen for Goals of Care: Yes, Screen for Pain: Yes, If Pain Regimen Started, Initiate Bowel Regimen: NA, Screen for Nausea/Vomitting: Yes Code Status: 01/26/18 15:34 DNR [Resuscitation Status: Active] [RES] Routine Comment: Resuscitation Status: DNR-Comfort Care - Labs CBC & Chem 7: 01/26/18 05:05 01/26/18 05:05 Labs: Laboratory Results - last 24 hr 01/25/18 01/25/18 01/25/18 13:21 17:12 20:26 POC Glucose 306 H 271 H 204 H 01/26/18 01/26/18 01/26/18 11:56 16:45 21:09 POC Glucose 206 H 200 H 119 H - Impressions Impressions Echocardiogram 01/26/18 12:38 Impressions: LVEF 35%. Normal LV chamber size and wall thickness. Global left ventricular systolic dysfunction with regional variations. Mild left ventricular diastolic dysfunction. Normal right ventricular structure and function. Mild mitral regurgitation. No evidence of pulmonary hypertension. There is a trivial pericardial effusion present. Left Ventricular Wall Motion: Rest Echo Findings The apex, apical inferior, mid inferior, basal inferior, apical anterior, mid anterior, basal anterior, apical septal, mid inferior septal, basal inferior septal, apical lateral, mid anterior lateral, basal anterior lateral, mid anterior septal, mid inferior lateral, basal anterior septal and basal inferior lateral branch were hypokinetic. Findings: Study Quality * Technically adequate exam. ECG Findings * Sinus rhythm with BBB. Left Ventricle * LVEF 35%. * Normal LV chamber size and wall thickness. * Global left ventricular systolic dysfunction with regional variations. * Atypical septal motion consistent with a bundle branch block. * Mild left ventricular diastolic dysfunction. Right Ventricle * Normal right ventricular structure and function. Left Atrium * Normal left atrial size. Right Atrium * Normal right atrial size. Aortic Valve * Aortic valve not well visualized. * No aortic regurgitation. * No aortic stenosis. Mitral Valve * Normal mitral valve structure. * Mild mitral regurgitation. * No mitral stenosis. Tricuspid Valve * Normal tricuspid valve structure and function. * Trace tricuspid regurgitation. * No evidence of pulmonary hypertension. Pulmonic Valve * Normal pulmonic valve structure and function. * No pulmonic regurgitation. Aorta * Normally sized aortic root. Pericardium * There is a trivial pericardial effusion present. IVC * Normal IVC dimensions and inspiratory collapse. - ABG Interpretation ABG results: ABG ABG pH 7.43 pH Units (7.32-7.45) 01/26/18 03:05 ABG pCO2 29 mmHg (35-45) L 01/26/18 03:05 ABG pO2 64 mmHg (85-104) L 01/26/18 03:05 ABG O2 Saturation 93 % (95-98) L 01/26/18 03:05 PT/INR, D-dimer PT 11.4 Seconds (9.4-12.1) 01/25/18 11:53 Consult Discharge Plan - Plan Referrals: Omari Holcomb DO [Primary Care Provider] -
[2018-01-27] MEDS ORDERED: Furosemide 20 MG/2 ML VIAL IVP ONE (09:55)
--- NOTE | 2018-01-27 09:56 | Internal Med Progress Note ---
Hospitalist Progress Note - Encounter Date of Encounter: 01/27/18 Time of Encounter: 09:52 - Subjective Interval History: 77 F being managed for STEMI with ICMP, CHF, Acute hypoxic respiratory failure, ANDRESSA She has a PMH of dementia and is confused at baseline She also has DM Seen and evaluated this a.m at the bedside with family an palliative care RN She was on precedex overnight due to agitation and was asleep throughout evaluation She also has a urinary catheter for comfort and due to excoriations on the buttocks We will transfer to palliative She is DNR-comfort care - Exam Vitals: Temp Pulse Resp BP Pulse Ox 97.2 F L 57 16 85/53 99 01/27/18 03:16 01/27/18 06:00 01/27/18 06:00 01/27/18 06:00 01/27/18 06:00 Exam: Constitutional: No acute distress, asleep but rousable Psych: Unable to assess HEENT: NCAT, EOMI Neck: no neck stiffness Cardio: S1, S2, RRR Resp: clear to auscultation bilaterally Chest: equal chest movt Abd: soft, non-tender/non distended, positive bowel sounds, no guarding/rebound/ rigidity Extremities: No pedal edema : villaseñor with clear urine Neuro: Unable to assess - Assessment and Plan (1) Diabetes Current Visit: Yes Status: Chronic Assessment and Plan: Continue insulin. Monitor fingersticks (2) CVA (cerebral vascular accident) Current Visit: Yes Status: Chronic Assessment and Plan: Hx of CVA with hemiplegia. Continue aspirin and statin (3) STEMI (ST elevation myocardial infarction) Current Visit: Yes Status: Acute Assessment and Plan: Pt came in with acute hypoxic respiratory failure and bluish discoloration. Troponins were elevated and she had EKG changes suggestive of STEMI Cardiac catheterization revealed an ejection fraction of 30-35%. She had a 99% LAD lesion with a small diffusely diseased distal vessel. The circumflex had a 99% lesion with a small diffusely diseased distal vessel. The right coronary artery had a 90% lesion with a bypassable posterior descending branch. Not a candidate for stent placement or CABG per cardiology and cardiothoracic surgery respectively Continue medical management with aspirin, statin Heparin has been discontinued Patient placed on comfort care per patient, family and palliative Continue ASA, Statin, Will add low dose ACEI when renal function stabilizes per cardio Continue lasix po 40mg daily Continue daily I/Os (4) Acute kidney failure Current Visit: Yes Status: Acute Assessment and Plan: Possibly secondary to congestion. Improved with lasix, continue to monitor (5) Goals of care, counseling/discussion Current Visit: Yes Status: Acute Assessment and Plan: Palliative care consulted , input appreciated DNR-CC Plan for discharge home with hospice on per paliiative care (6) DVT prophylaxis Current Visit: Yes Status: Acute Assessment and Plan: SQ heparin (7) Acute systolic (congestive) heart failure Current Visit: Yes Status: Acute Assessment and Plan: Likely secondary to ischemia. Echo showed new EF of 35%. Continue lasix , I/Os Will add ACEI when renal function stabilizes May need BB, however, blood pressure labile at this time Cardio following, (8) Acute respiratory failure with hypoxia Current Visit: Yes Status: Acute Assessment and Plan: Continue )2, on 5L at this time, wean as tolerated - Time Spent with Patient Total time spent is greater than 50% in coordination of care (as documented) at patient's floor/unit and/or counseling patient: Plan of Care Discussed with: family Internal Medicine: Result - Labs CBC & Chem 7: 01/26/18 05:05 01/26/18 05:05 - ABG Interpretation ABG results: ABG ABG pH 7.43 pH Units (7.32-7.45) 01/26/18 03:05 ABG pCO2 29 mmHg (35-45) L 01/26/18 03:05 ABG pO2 64 mmHg (85-104) L 01/26/18 03:05 ABG O2 Saturation 93 % (95-98) L 01/26/18 03:05 PT/INR, D-dimer PT 11.4 Seconds (9.4-12.1) 01/25/18 11:53 - Impressions Impressions Echocardiogram 01/26/18 12:38 Impressions: LVEF 35%. Normal LV chamber size and wall thickness. Global left ventricular systolic dysfunction with regional variations. Mild left ventricular diastolic dysfunction. Normal right ventricular structure and function. Mild mitral regurgitation. No evidence of pulmonary hypertension. There is a trivial pericardial effusion present. Left Ventricular Wall Motion: Rest Echo Findings The apex, apical inferior, mid inferior, basal inferior, apical anterior, mid anterior, basal anterior, apical septal, mid inferior septal, basal inferior septal, apical lateral, mid anterior lateral, basal anterior lateral, mid anterior septal, mid inferior lateral, basal anterior septal and basal inferior lateral branch were hypokinetic. Findings: Study Quality * Technically adequate exam. ECG Findings * Sinus rhythm with BBB. Left Ventricle * LVEF 35%. * Normal LV chamber size and wall thickness. * Global left ventricular systolic dysfunction with regional variations. * Atypical septal motion consistent with a bundle branch block. * Mild left ventricular diastolic dysfunction. Right Ventricle * Normal right ventricular structure and function. Left Atrium * Normal left atrial size. Right Atrium * Normal right atrial size. Aortic Valve * Aortic valve not well visualized. * No aortic regurgitation. * No aortic stenosis. Mitral Valve * Normal mitral valve structure. * Mild mitral regurgitation. * No mitral stenosis. Tricuspid Valve * Normal tricuspid valve structure and function. * Trace tricuspid regurgitation. * No evidence of pulmonary hypertension. Pulmonic Valve * Normal pulmonic valve structure and function. * No pulmonic regurgitation. Aorta * Normally sized aortic root. Pericardium * There is a trivial pericardial effusion present. IVC * Normal IVC dimensions and inspiratory collapse. Consult Discharge Plan - Plan Referrals: Omari Holcomb DO [Primary Care Provider] - (1) Diabetes Qualifiers: Diabetes mellitus type: type 2 Diabetes mellitus care home insulin use: with art appraiser use Diabetes mellitus complication status: without complication Qualified Code(s): E11.9 - Type 2 diabetes mellitus without complications; Z79.4 - detention (current) use of insulin (2) CVA (cerebral vascular accident) Qualifiers: CVA mechanism: stenosis Precerebral and cerebral artery: posterior cerebral artery Laterality of affected vessel: right Qualified Code(s): I63.531 - Cerebral infarction due to unspecified occlusion or stenosis of right posterior cerebral artery (3) STEMI (ST elevation myocardial infarction) Qualifiers: Involved coronary artery: other inferior wall coronary artery Qualified Code( s): I21.19 - ST elevation (STEMI) myocardial infarction involving other coronary artery of inferior wall (4) Acute kidney failure Qualifiers: Acute renal failure type: unspecified Qualified Code(s): N17.9 - Acute kidney failure, unspecified
--- NOTE | 2018-01-27 12:44 | Cardiology Progress Note ---
Date of Encounter: 01/27/18 Time of Encounter: 12:42 Assessment and Plan (1) STEMI (ST elevation myocardial infarction) Current Visit: Yes Status: Acute Not a candidate for PCI as she has diffuse disease with small vessels. Not candidate for surgery because of frailty and comorbidities. Medical management. IV heparin x 48hrs. Now on DVT prophylaxis Lovenox. Continue aspirin 81mg daily, high intensity statin. Blood pressure will not tolerate BB. Given anemia and going home with hospice, will not start Plavix. TTE resulted--EF 35%. Pt and family have elected for hospice. Plan is d/c home with hospice. Discussed with hospitalist--will transfer service to them. Cardiology signing off. Reconsult PRN. Qualifiers: Involved coronary artery: other inferior wall coronary artery Qualified Code(s): I21.19 - ST elevation (STEMI) myocardial infarction involving other coronary artery of inferior wall (2) Acute systolic (congestive) heart failure Current Visit: Yes Status: Acute Patient with clinical heart failure and vascular congestion on CXR. LVEF 35%. Global left ventricular systolic dysfunction with regional variations. Mild left ventricular diastolic dysfunction. Mild mitral regurgitation. Currently on IV Lasix. SCr improved. Will transition to PO Lasix 40mg daily. Strict I and Os, Low salt fluid restricted diet. BP will currently not tolerate BB or ACEi. Discussion w patient/family: The assessment and plan as outlined above was discussed with the patient and/or family members who expressed understanding and agreement. All questions were answered. Thank you for involving us in the care of your patient. Please call with any questions. I will discuss all the above with Dr. Lubin and make changes as necessary. Subjective Principal diagnosis: STEMI Interval history: Pt sleeping. Family at bedside. Plan is for d/c home on with hospice. Objective Vital Signs, Last 4 Hours Temp Pulse Resp BP Pulse Ox 01/27/18 12:09 97.6 F 73 19 101/63 95 01/27/18 10:00 58 17 92/59 98 01/27/18 09:00 61 30 100/65 97 Vital Signs Temp Pulse Resp BP Pulse Ox 01/27/18 12:09 97.6 F 73 19 101/63 95 01/27/18 10:00 58 17 92/59 98 01/27/18 09:00 61 30 100/65 97 01/27/18 08:00 95.8 F L 65 24 94/70 95 01/27/18 07:00 58 18 87/56 100 01/27/18 06:00 57 16 85/53 99 01/27/18 05:00 60 19 86/57 99 01/27/18 04:36 61 19 87/55 100 01/27/18 03:33 20 92/58 100 01/27/18 03:20 60 01/27/18 03:16 97.2 F L 60 25 92/58 95 01/27/18 02:00 61 25 93/60 96 01/27/18 01:00 65 19 90/57 97 01/27/18 00:00 69 17 90/58 97 01/26/18 23:00 98.3 F 70 24 88/58 90 01/26/18 22:40 18 87/60 100 01/26/18 22:00 70 18 87/60 100 01/26/18 21:30 71 18 85/55 99 01/26/18 20:04 24 110/65 95 01/26/18 20:00 99 24 110/65 96 01/26/18 19:25 96 01/26/18 19:00 98.2 F 98 24 86/46 95 01/26/18 18:00 97 26 110/72 95 01/26/18 17:03 26 96 01/26/18 17:00 96 25 141/79 95 01/26/18 16:00 97.8 F 89 25 129/64 95 01/26/18 15:00 88 26 112/94 96 01/26/18 14:00 94 25 119/87 95 01/26/18 13:00 93 24 124/70 94 Intake and Output 01/26/18 01/27/18 01/27/18 23:59 07:59 15:59 Intake Total 240 / 240 137 / 137 Output Total 1225 / 1225 150 / 150 Balance -985 / -985 -13 / -13 Intake: IV Fluids 137 / 137 PRECEDEX Premix 400 mcg In 100 137 / 137 ml @ 0.2 MCG/KG/HR 3.695 mls/hr IVC .Q24H [facility] Rx#:[id number] Oral 240 / 240 0 / 0 Tube Feeding 0 / 0 0 / 0 Output: Catheter 1225 / 1225 150 / 150 Other: Meal Dinner Percent of Meal Consumed 25% # Bowel Movements 0 0 Blood Glucose* 119 119 General: No Apparent Distress HEENT: Atraumatic, Normocephaly, Mucus Membranes Moist Neck: No JVD, Normal carotid pulses Cardiac: Reg Rate and Rhythm, Normal S1 and S2, No Murmur Lungs: Other (diminished) Neuro: No focal deficits noted Abdomen: Soft, Non-Tender Skin: No rashes noted on visualized skin Musculoskeletal: No Chest Wall Tenderness Extremities: No Clubbing, No Cyanosis, No Edema, Normal Pulses Results 01/26/18 05:05 01/26/18 05:05 Impressions Chest X-Ray 01/25/18 11:53 IMPRESSION: Pulmonary edema. Pleural effusions. D/ / 01/25/2018 12:29:00 Shay Hale MD / spike Interpreting Provider: Shay Hale MD Echocardiogram 01/26/18 12:38 Impressions: LVEF 35%. Normal LV chamber size and wall thickness. Global left ventricular systolic dysfunction with regional variations. Mild left ventricular diastolic dysfunction. Normal right ventricular structure and function. Mild mitral regurgitation. No evidence of pulmonary hypertension. There is a trivial pericardial effusion present. Left Ventricular Wall Motion: Rest Echo Findings The apex, apical inferior, mid inferior, basal inferior, apical anterior, mid anterior, basal anterior, apical septal, mid inferior septal, basal inferior septal, apical lateral, mid anterior lateral, basal anterior lateral, mid anterior septal, mid inferior lateral, basal anterior septal and basal inferior lateral branch were hypokinetic. Findings: Study Quality * Technically adequate exam. ECG Findings * Sinus rhythm with BBB. Left Ventricle * LVEF 35%. * Normal LV chamber size and wall thickness. * Global left ventricular systolic dysfunction with regional variations. * Atypical septal motion consistent with a bundle branch block. * Mild left ventricular diastolic dysfunction. Right Ventricle * Normal right ventricular structure and function. Left Atrium * Normal left atrial size. Right Atrium * Normal right atrial size. Aortic Valve * Aortic valve not well visualized. * No aortic regurgitation. * No aortic stenosis. Mitral Valve * Normal mitral valve structure. * Mild mitral regurgitation. * No mitral stenosis. Tricuspid Valve * Normal tricuspid valve structure and function. * Trace tricuspid regurgitation. * No evidence of pulmonary hypertension. Pulmonic Valve * Normal pulmonic valve structure and function. * No pulmonic regurgitation. Aorta * Normally sized aortic root. Pericardium * There is a trivial pericardial effusion present. IVC * Normal IVC dimensions and inspiratory collapse. Active Medications Acetaminophen (Tylenol) 500 mg PO Q6HR PRN PRN Reason: Mild Pain Stop: 07/27/18 12:39 Last Admin: 01/25/18 20:21 Dose: 500 mg Hydrocodone Bitart/Acetaminophen ([place] 5-325 Mg) 1 tab PO Q6H PRN PRN Reason: POSTOPERATIVE PAIN Stop: 07/27/18 13:18 Last Admin: 01/26/18 02:00 Dose: 1 tab Albuterol/Ipratropium (Duoneb) 3 ml IH [id number] PRN PRN Reason: Shortness Of Breath/Wheezing Stop: 07/28/18 00:01 Last Admin: 01/27/18 03:33 Dose: 3 ml Aspirin (Aspirin) 81 mg PO DAILY ИВАН Stop: 07/28/18 09:01 Last Admin: 01/27/18 07:48 Dose: 81 mg Atorvastatin Calcium (Lipitor) 40 mg PO HS ИВАН Stop: 07/27/18 21:01 Last Admin: 01/26/18 19:57 Dose: 40 mg Dextrose/Water (Dextrose 50% (Syg)) 25 ml IVP AD PRN PRN Reason: Hypoglycemia Stop: 07/27/18 13:20 Diphenhydramine HCl (Benadryl) 25 mg PO HS PRN PRN Reason: insomnia Stop: 07/27/18 13:35 Last Admin: 01/25/18 21:59 Dose: 25 mg Docusate Sodium (Colace) 100 mg PO DAILY PRN; Protocol PRN Reason: Constipation Stop: 07/27/18 13:18 Enoxaparin Sodium (Lovenox) 40 mg SQ 0600 ИВАН PRN Reason: Protocol Stop: 07/30/18 06:01 Furosemide (Lasix) 20 mg IVP DAILY ИВАН Stop: 07/30/18 09:01 Glucagon (Glucagen) 1 mg IM ONCE PRN PRN Reason: Hypoglycemia Stop: 07/27/18 13:20 Glucose (Gluctose) 15 gm PO ONCE PRN PRN Reason: Hypoglycemia Stop: 07/27/18 13:20 Glucose (Gluctose) 30 gm PO ONCE PRN PRN Reason: Hypoglycemia Stop: 07/27/18 13:20 Haloperidol (Haldol) 2 mg PO TID PRN PRN Reason: Agitation Stop: 07/29/18 09:48 Dextrose (Dextrose 5%) 1,000 mls @ 100 mls/hr IVC .Q10H PRN PRN Reason: HYPOGLYCEMIA Stop: 07/27/18 13:20 Sodium Chloride (0.9 % Sodium Chloride) 1,000 mls @ 50 mls/hr IVC .Q20H ИВАН Stop: 07/27/18 20:31 Last Infusion: 01/26/18 02:52 Dose: 0 mls/hr Dexmedetomidine HCl (Precedex Premix) 400 mcg in 100 mls @ 3.695 mls/hr IVC .Q24H ИВАН; 0.2 MCG/KG/HR PRN Reason: Protocol Stop: 07/28/18 19:46 Last Titration: 01/27/18 05:30 Dose: 0 mcg/kg/hr, 0 mls/hr Insulin Detemir (Levemir) 15 unit SQ BID ИВАН Stop: 07/27/18 21:01 Last Admin: 01/27/18 07:48 Dose: 15 unit Insulin Human Lispro (Humalog) 0 units SQ HS ИВАН PRN Reason: Protocol Stop: 07/27/18 21:01 Last Admin: 01/26/18 21:39 Dose: Not Given Insulin Human Lispro (Humalog) 0 units SQ TIDAC ИВАН PRN Reason: Protocol Stop: 07/27/18 16:31 Last Admin: 01/27/18 12:14 Dose: Not Given Morphine Sulfate (Roxanol Oral Conc) 5 mg SL Q4HR PRN PRN Reason: pain/shortness of breath. Stop: 07/28/18 15:41 Ondansetron HCl (Zofran) 4 mg IVP Q8HR PRN PRN Reason: Nausea And Vomiting Stop: 07/27/18 12:39 Last Admin: 01/26/18 11:49 Dose: 4 mg Promethazine HCl (Phenergan) 12.5 mg IVP Q6HR PRN PRN Reason: Nausea And Vomiting Stop: 07/28/18 10:32 - Imaging and Cardiology Echo: report reviewed Cardiac cath: report reviewed Consult Discharge Plan - Plan Referrals: Stiltner,Omari D, [Primary Care Provider] -
--- NOTE | 2018-01-27 17:40 | Electrocardiograph Report ---
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
--- NOTE | 2018-01-27 17:42 | Electrocardiograph Report ---
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
[2018-01-27] MEDS: Haloperidol Oral Conc 10 MG/5 ML UDC PO PRN (18:21)
[2018-01-27] MEDS: *HR* HYDROcodone/Acet 5/325 mg TABLET PO PRN (18:56)
[2018-01-28] MEDS: *HR* HYDROcodone/Acet 5/325 mg TABLET PO PRN ×2 (00:57→08:42)
[2018-01-28] MEDS: *HR* Enoxaparin 40 MG/0.4 ML SYRINGE SQ SCH (06:00)
[2018-01-28] MEDS: Insulin LISPRO 300 UNITS/3 ML VIAL SQ SCH ×4 (08:36→20:42)
[2018-01-28] MEDS: Furosemide 40 MG TABLET PO SCH (08:37)
[2018-01-28] MEDS: Aspirin 81 MG TAB.CHEW PO SCH (08:37)
[2018-01-28] MEDS: Insulin DETEMIR 100 UNIT/ML X5UNITS SQ SCH ×2 (08:39→20:42)
[2018-01-28] MEDS ORDERED: Furosemide 20 MG/2 ML VIAL IVP SCH (09:00)
--- NOTE | 2018-01-28 09:32 | Palliative Progress Note ---
Date of Encounter: 01/28/18 Time of Encounter: 09:00 - Assessment and plan (1) Nausea & vomiting Current Visit: Yes Status: Acute Assessment and plan: Patient denies nausea during assessment. 1 dose Zofran and 0 dose Phenergan in the last 24 hours. Will transition Zofran to SL PRN. Will discontinue Phenergan , as not needed. Qualifiers: Vomiting type: unspecified Vomiting Intractability: unspecified Qualified Code(s): R11.2 - Nausea with vomiting, unspecified (2) Goals of care, counseling/discussion Current Visit: Yes Status: Acute Assessment and plan: Family ready to bring patient home tomorrow with [facility]. Family inquired number of visits per week and time of DME delivery. Called Nicky at [facility] , awaiting return phone call. Family gave additional contact phone numbers; will relay information to [facility]: [facility] [phone] Arianne Daughter [phone] Hanh [phone] Roberta Daughter [phone] Foy, will write prescriptions for discharge. (3) Diabetes Current Visit: Yes Status: Chronic Assessment and plan: Continue insulin as ordered per primary team. 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 (5) STEMI (ST elevation myocardial infarction) Current Visit: Yes Status: Acute Assessment and plan: Patient to be discharged home to [facility] hospice . Cardiology made aware of plan. Qualifiers: Involved coronary artery: other inferior wall coronary artery Qualified Code(s): I21.19 - ST elevation (STEMI) myocardial infarction involving other coronary artery of inferior wall (6) Agitation Current Visit: Yes Status: Acute Assessment and plan: Patient had repeat acute episode of agitation overnight, appears Haldol improved. Continue Haldol SL PRN. (7) Constipation by delayed colonic transit Current Visit: Yes Status: Acute Assessment and plan: No bowel movement times 3 days, add bowel regimen. - Time Spent With Patient Total time spent is greater than 50% in coordination of care (as documented) at patient's floor/unit and/or counseling patient: 25 - 35 minutes - Subjective Interval history: Patient sitting up in bed with eyes open upon arrival for assessment. Patient alert and oriented times 3. Patients three daughters present at bedside. Denies pain, anxiety, shortness of breath, nausea, and vomiting. Patient has received 3 doses [place], 1 dose Haldol, 0 doses Morphine, 1 dose Zofran, and 0 doses Phenergan in the last 24 hours. Patient has period of agitation overnight, Haldol reported as helping. No bowel movement times [address] Foy present during assessment. - Constitutional Vitals: Abnormal lab results WBC 11.8 K/mcL (4.3-11.1) H 01/26/18 05:05 RBC 3.12 M/mcL (3.82-4.97) L 01/26/18 05:05 Hgb 8.3 g/dL (11.5-15.4) L 01/26/18 05:05 Hct 26.4 % (35.3-44.9) L 01/26/18 05:05 MCH 26.6 pg (28.0-33.3) L 01/26/18 05:05 MCHC 31.4 g/dL (31.6-35.5) L 01/26/18 05:05 RDW 15.9 % (11.5-14.5) H 01/26/18 05:05 Neutrophils # 9.7 K/mcL (1.6-8.9) H 01/26/18 05:05 APTT 25.3 Seconds (26.0-36.0) L 01/25/18 11:53 ABG pCO2 29 mmHg (35-45) L 01/26/18 03:05 ABG pO2 64 mmHg (85-104) L 01/26/18 03:05 ABG HCO3 20 mEq/L (21-27) L 01/26/18 03:05 ABG O2 Saturation 93 % (95-98) L 01/26/18 03:05 ABG Base Excess -4 mEq/L (-2 to 3) L 01/26/18 03:05 Sodium 132 mEq/L (136-145) L 01/26/18 05:05 Carbon Dioxide 20 mEq/L (23-29) L 01/26/18 05:05 BUN 47 mg/dL (8-23) H 01/26/18 05:05 Est GFR (Non-Af Amer) 54 (> 60) L 01/26/18 05:05 BUN/Creatinine Ratio 47 (6-26) H 01/26/18 05:05 Glucose 190 mg/dL (70-105) H 01/26/18 05:05 POC Glucose 180 mg/dL (70-99) H 01/27/18 07:46 Calcium 8.2 mg/dL (8.6-10.3) L 01/26/18 05:05 Troponin I 11.67 ng/mL (< 0.04) H* 01/25/18 11:47 General appearance: Present: cooperative, no acute distress - Head Head exam: Present: atraumatic, normal inspection - Eye Eye exam: Present: EOMI, normal appearance, PERRL. Absent: periorbital swelling , periorbital tenderness Pupils: Present: normal accommodation, PERRL - ENT ENT exam: Present: mucous membranes moist, normal external ear exam - Neck Neck exam: Present: full ROM, normal inspection - Respiratory Respiratory exam: Present: rhonchi, wheezes - Cardiovascular Cardiovascular exam: Present: +S1, +S2 - GI/Abdominal GI/Abdominal exam: Present: diminished bowel sounds, soft. Absent: tenderness - Rectal Rectal exam: Present: deferred - Additional comments: Carrion catheter in place; clear yellow urine noted. - Extremities Exam Extremities exam: Present: normal inspection. Absent: calf tenderness, full ROM (left sided weakness.), pedal edema - Back Exam Back exam: Present: full ROM, normal inspection - Neurological Exam Neurological exam: Present: alert, oriented X3 - Psychiatric Psychiatric exam: Present: normal affect, normal mood - Skin Skin exam: Present: dry, intact, normal color, warm Palliative Quality Palliative Quality: Screen for Code Status: Yes, Screen for Goals of Care: Yes, Screen for Pain: Yes, If Pain Regimen Started, Initiate Bowel Regimen: Yes, Screen for Nausea/Vomitting: Yes Code Status: 01/26/18 15:34 DNR [Resuscitation Status: Active] [RES] Routine Comment: Resuscitation Status: DNR-Comfort Care - Labs CBC & Chem 7: 09/17/18 05:05 01/26/18 05:05 Labs: Laboratory Results - last 24 hr 01/27/18 01/27/18 05:14 07:46 POC Glucose 204 H 180 H - ABG Interpretation ABG results: ABG ABG pH 7.43 pH Units (7.32-7.45) 01/26/18 03:05 ABG pCO2 29 mmHg (35-45) L 01/26/18 03:05 ABG pO2 64 mmHg (85-104) L 01/26/18 03:05 ABG O2 Saturation 93 % (95-98) L 01/26/18 03:05 PT/INR, D-dimer PT 11.4 Seconds (9.4-12.1) 01/25/18 11:53 Consult Discharge Plan - Plan Referrals: Omari Holcomb DO [Primary Care Provider] -
[2018-01-28] MEDS ORDERED: Ondansetron ODT 4 MG TAB.RAPDIS SL PRN (09:40)
--- NOTE | 2018-01-28 09:40 | Internal Med Progress Note ---
Hospitalist Progress Note - Encounter Date of Encounter: 01/28/18 Time of Encounter: 09:00 - Subjective Interval History: 77 F being managed for STEMI with ICMP, CHF, Acute hypoxic respiratory failure, ANDRESSA She has a PMH of dementia and is confused at baseline She also has DM Seen and evaluated this a.m at the bedside with family an palliative care RN She was on precedex overnight due to agitation and was asleep throughout evaluation She also has a urinary catheter for comfort and due to excoriations on the buttocks We will transfer to 2A palliative She is DNR-comfort care - Exam Vitals: Temp Pulse Resp BP Pulse Ox 97.8 F 88 16 115/65 90 01/28/18 07:39 01/28/18 07:39 01/28/18 07:39 01/28/18 07:39 01/28/18 07:39 Exam: Constitutional: No acute distress, awake, alert, oriented X2 Psych: Unable to assess HEENT: NCAT, EOMI Neck: no neck stiffness Cardio: S1, S2, RRR Resp: few crackles, scattered, no rhonchi Chest: equal chest movt Abd: soft, non-tender/non distended, positive bowel sounds, no guarding/rebound/ rigidity Extremities: No pedal edema : villaseñor with clear urine Neuro: Alert, awake, oriented 2, moves all extremities, speech is normal, no facial paralysis. - Assessment and Plan (1) Diabetes Current Visit: Yes Status: Chronic Assessment and Plan: Continue insulin. Monitor fingersticks (2) CVA (cerebral vascular accident) Current Visit: Yes Status: Chronic Assessment and Plan: Hx of CVA with hemiplegia. Continue aspirin and statin (3) STEMI (ST elevation myocardial infarction) Current Visit: Yes Status: Acute Assessment and Plan: Pt came in with acute hypoxic respiratory failure and bluish discoloration. Troponins were elevated and she had EKG changes suggestive of STEMI Cardiac catheterization revealed an ejection fraction of 30-35%. She had a 99% LAD lesion with a small diffusely diseased distal vessel. The circumflex had a 99% lesion with a small diffusely diseased distal vessel. The right coronary artery had a 90% lesion with a bypassable posterior descending branch. Not a candidate for stent placement or CABG per cardiology and cardiothoracic surgery respectivelyn Heparin has been discontinued Patient placed on comfort care per patient, family and palliative Continue ASA, Statin, No ACB test with beta blockers due to low blood pressure. Continue lasix po 40mg daily Continue daily I/Os (4) Acute kidney failure Current Visit: Yes Status: Resolved Assessment and Plan: Possibly secondary to congestion. Improved with lasix, continue to monitor (5) Goals of care, counseling/discussion Current Visit: Yes Status: Acute Assessment and Plan: Palliative care consulted , input appreciated DNR-CC Plan for discharge home with hospice on 01/29 per paliiative care (6) DVT prophylaxis Current Visit: Yes Status: Acute Assessment and Plan: SQ heparin (7) Acute systolic (congestive) heart failure Current Visit: Yes Status: Acute Assessment and Plan: Likely secondary to ischemia. Echo showed new EF of 35%. Continue lasix , I/Os APOLLO inhibitors and beta blockers when blood pressure tolerates. Renal function is stable. (8) Acute respiratory failure with hypoxia Current Visit: Yes Status: Acute Assessment and Plan: Continue O2, on 5L at this time, wean as tolerated - Time Spent with Patient Total time spent is greater than 50% in coordination of care (as documented) at patient's floor/unit and/or counseling patient: Plan of Care Discussed with: family Internal Medicine: Result - Labs CBC & Chem 7: 01/26/18 05:05 01/26/18 05:05 - ABG Interpretation ABG results: ABG ABG pH 7.43 pH Units (7.32-7.45) 01/26/18 03:05 ABG pCO2 29 mmHg (35-45) L 01/26/18 03:05 ABG pO2 64 mmHg (85-104) L 01/26/18 03:05 ABG O2 Saturation 93 % (95-98) L 01/26/18 03:05 PT/INR, D-dimer PT 11.4 Seconds (9.4-12.1) 01/25/18 11:53 Consult Discharge Plan - Plan Referrals: Omari Holcomb, DO [Primary Care Provider] - (1) Diabetes Qualifiers: Diabetes mellitus type: type 2 Diabetes mellitus senior living insulin use: with rn long term care use Diabetes mellitus complication status: without complication Qualified Code(s): E11.9 - Type 2 diabetes mellitus without complications; Z79.4 - longterm (current) use of insulin (2) CVA (cerebral vascular accident) Qualifiers: CVA mechanism: stenosis Precerebral and cerebral artery: posterior cerebral artery Laterality of affected vessel: right Qualified Code(s): I63.531 - Cerebral infarction due to unspecified occlusion or stenosis of right posterior cerebral artery (3) STEMI (ST elevation myocardial infarction) Qualifiers: Involved coronary artery: other inferior wall coronary artery Qualified Code( s): I21.19 - ST elevation (STEMI) myocardial infarction involving other coronary artery of inferior wall (4) Acute kidney failure Qualifiers: Acute renal failure type: unspecified Qualified Code(s): N17.9 - Acute kidney failure, unspecified
[2018-01-28] MEDS: Sennosides/Docusate Sodium TABLET PO SCH ×2 (10:31→20:41)
[2018-01-28] MEDS ORDERED: MORPHINE SUL Oral CONC 10 MG/0.5 ML ORAL.SYG SL PRN (10:47)
[2018-01-28] MEDS ORDERED: *HR* HYDROcodone/Acet 5/325 mg TABLET PO PRN (10:47)
[2018-01-28] MEDS: Haloperidol Oral Conc 10 MG/5 ML UDC PO PRN (17:19)
[2018-01-29] MEDS: *HR* Enoxaparin 40 MG/0.4 ML SYRINGE SQ SCH (05:25)
[2018-01-29 06:56] LABS: BUN/Creatinine Ratio 31 (6-26); Blood Urea Nitrogen 27 mg/dL (8-23); Carbon Dioxide 24 mEq/L (23-29); Chloride 104 mEq/L (98-107); Glucose 111 mg/dL (70-105); Osmolality,Calculated 292 (280-300); Potassium 3.9 mEq/L (3.5-5.1); Sodium 138 mEq/L (136-145); eGFR For Non-African Americans > 60 (> 60)
[2018-01-29 08:22] LABS: Calcium 8.2 mg/dL (8.6-10.3)
[2018-01-29] MEDS: Insulin LISPRO 300 UNITS/3 ML VIAL SQ SCH ×2 (08:35→11:48)
[2018-01-29] MEDS: Furosemide 40 MG TABLET PO SCH (09:32)
[2018-01-29] MEDS: Aspirin 81 MG TAB.CHEW PO SCH (09:32)
[2018-01-29] MEDS: Sennosides/Docusate Sodium TABLET PO SCH (09:32)
[2018-01-29] MEDS: Insulin DETEMIR 100 UNIT/ML X5UNITS SQ SCH (09:34)
--- NOTE | 2018-01-29 09:42 | Discharge Summary ---
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: with snf use Diabetes mellitus complication status: without complication Qualified Code(s): E11.9 - Type 2 diabetes mellitus without complications; Z79.4 - senior care (current) use of insulin (2) CVA (cerebral vascular accident) Priority: Secondary Status: Chronic Qualifiers: CVA mechanism: stenosis Precerebral and cerebral artery: posterior cerebral artery Laterality of affected vessel: right Qualified Code(s): I63.531 - Cerebral infarction due to unspecified occlusion or stenosis of right posterior cerebral artery (3) STEMI (ST elevation myocardial infarction) Priority: Primary Status: Acute Qualifiers: Involved coronary artery: other inferior wall coronary artery Qualified Code(s): I21.19 - ST elevation (STEMI) myocardial infarction involving other coronary artery of inferior wall (4) Acute kidney failure Priority: Primary Status: Resolved Qualifiers: Acute renal failure type: unspecified Qualified Code(s): N17.9 - Acute kidney failure, unspecified (5) Goals of care, counseling/discussion Priority: Primary Status: Resolved (6) DVT prophylaxis Priority: Primary Status: Resolved (7) Acute systolic (congestive) heart failure Priority: Primary Status: Acute (8) Acute respiratory failure with hypoxia Priority: Primary Status: Acute Hospital course: Ms. Gillette is a 77 year old female with PMH of diabetes mellitus, dementia, hypertension. Resident at home prior to presentation. The patient presented to the emergency room with acute hypoxic respiratory failure with associated altered mental status as well as elevated troponin with EKG changes suggestive of STEMI.Cardiac catheterization revealed an ejection fraction of 30-35%. She had a 99% LAD lesion with a small diffusely diseased distal vessel. The circumflex had a 99% lesion with a small diffusely diseased distal vessel. The right coronary artery had a 90% lesion with a bypassable posterior descending branch. Initil management begun with ACS treatment and cardiology and CTS was consulted. Not a candidate for stent placement or CABG per cardiology and cardiothoracic surgery respectively. She underwent ACS treatment with heparin infusion, aspirin and statin. Blood pressure was low and could not tolerate beta blockers ACB test. She was diuressed with intravenous Lasix and tolerating oral Lasix at this time. She also had acute kidney injury which was likely secondary to cardiac congestion, improved with Lasix. Her mental status is back to her baseline. Palliaitve care team was consulted and with patient and her family , patient changed her code status to DNR-CC and agreed to be placed on home hospice She was seen this a.m with her partner at [facility] care team has been following and co-managing, the patient required a few doses of haldol for agitation but has made significant improvement She has a urinary catheter for comfort purposes and this may be changed per hospice protocol She continued to require O2 supplementation and will be discharged to home hospice with O2 and medications Plan of care was discussed daily with patient and her daughters and they verbalized understanding Discharge discussed with: patient, family, nurse, social work, case management, senior financial consultant - Time Spent with Patient Total time spent providing and/or coordinating discharge services: Less than 30 minutes - Discharge Medications Prescriptions: Ondansetron ODT [Zofran ODT] 4 mg SL Q6HR PRN 7 Days #28 tab.rapdis PRN Reason: Nausea Furosemide [Lasix] 40 mg PO DAILY #30 tablet Haloperidol Oral Conc [Haldol] 2 mg PO TID PRN 7 Days #15 mls PRN Reason: Agitation HYDROcodone/Acet 5/325 mg [[place] 5-325 mg] 1 tab PO Q6H PRN 7 Days #28 tab PRN Reason: Moderate Pain Insulin DETEMIR [Levemir] 15 unit SQ BID #2 vial MORPHINE SUL Oral CONC [Roxanol Oral Conc] 5 mg PO Q4H PRN 7 Days #15 ml PRN Reason: pain/dyspnea Sennosides/Docusate Sodium [Senna Plus] 1 each PO BID #60 tablet Home Medications: Atorvastatin [Lipitor] 20 mg PO HS tablet 03/29/17 [Rx] Clopidogrel [Plavix] 75 mg PO DAILY tablet 03/29/17 [Rx] Docusate [Colace] 100 mg PO DAILY PRN 04/24/17 [History] Melatonin 5 mg PO HS PRN 04/24/17 [History] Aspirin [Lo-Dose Aspirin EC] 81 mg PO DAILY 01/26/18 [History] Flavoxate HCl 100 mg PO TID 01/26/18 [History] Insulin ASPART [NovoLOG] 15 unit SQ TIDWM 01/26/18 [History] HYDROcodone/Acet 5/325 mg [[place] 5-325 mg] 1 tab PO Q6H PRN 7 Days #28 tab 01/28 [Rx] Haloperidol Oral Conc [Haldol] 2 mg PO TID PRN 7 Days #15 mls 01/28/18 [Rx] MORPHINE SUL Oral CONC [Roxanol Oral Conc] 5 mg PO Q4H PRN 7 Days #15 ml [Rx] Ondansetron ODT [Zofran ODT] 4 mg SL Q6HR PRN 7 Days #28 tab.rapdis 01/28/18 [Rx ] Furosemide [Lasix] 40 mg PO DAILY #30 tablet 01/29/18 [Rx] Insulin DETEMIR [Levemir] 15 unit SQ BID #2 vial 01/29/18 [Rx] Sennosides/Docusate Sodium [Senna Plus] 1 each PO BID #60 tablet 01/29/18 [Rx] Allergies/Adverse Reactions: 3 Allergy/AdvReac Type Severity Reaction Status Date / Time No Known Allergies Allergy Verified 01/26/18 12:37 Date of admission: 01/25/18 12:00 Primary care physician: Omari Holcomb DO Consults: 01/25/18 12:38 Consult to Cardiac Rehabilitation-Phase1 [CONS] Routine Comment: Reason for Consult: AMI Call Completed: Yes Consult to Nurse Navigator [CONS] Routine Comment: 01/25/18 13:23 Consult to Cardiothoracic Surgery [CONS] Routine Consulting Provider: Cardiothoracic Surgery [place] Reason for Consult: multivessel cad ef 35% diabetic Call Completed: Yes 01/26/18 10:01 Consult to Palliative Care [CONS] Routine Comment: Consulting Provider: [facility] [place] Reason for Consult: multivessel CAD/stemi with no durgical or cardiac intervention Call Completed: No Discharging clinician: Babatunde Foy Anticipated date of discharge: 01/29/18 - Constitutional Vitals: Temp Pulse Resp BP Pulse Ox 98.7 F 86 18 99/62 98 01/29/18 06:46 01/29/18 06:46 01/29/18 06:46 01/29/18 06:46 01/29/18 06:46 General appearance: Present: A&O X 3, pleasant, no acute distress Exam: Constitutional: No acute distress, awake, alert, oriented X2 Psych: Normal affect HEENT: NCAT, EOMI Neck: no neck stiffness Cardio: S1, S2, RRR Resp: few crackles, scattered, no rhonchi Chest: equal chest movt Abd: soft, non-tender/non distended, positive bowel sounds, no guarding/rebound/ rigidity Extremities: No pedal edema : villaseñor with clear urine Neuro: Alert, awake, oriented 2, moves all extremities, speech is normal, no facial paralysis. - Patient Status Disposition: Hospice - Home Condition: Fair Functional capacity at discharge: uses cane/walker Overall status at discharge: patient is progressing back to baseline - Discharge Instructions Instructions: Myocardial Infarction (DC), Diabetes Mellitus Type 2 in Adults ( DC) Follow Up With: Omari Holcomb DO [Primary Care Provider] - (patient will go home with [facility] hospice) Additional Instructions: Follow-up appointments: If there is not an appointment listed below, please call your physician and schedule a follow-up appointment. If you have congestive heart failure and your symptoms return, make an appointment with your physician. Medication List: Carry an up to date list of medications you are taking at all time. We have given you an updated medication list including any new medications that you have been prescribed. Please provide that list to your primary provider Symptoms: If your condition changes or you experience any of the following symptoms, notify your physician immediately: Unusual or worsening pain, fever, persistent nausea and vomiting, bleeding, increase in swelling (especially in your legs), sudden weight gain, extreme dizziness, chest pain, increased drainage or redness from a wound or incision. Go to the emergency department if you experience a problem with breathing. Weights: If you have a history of swelling or shortness of breath, weigh yourself daily and notify your physician if you have a weight gain of two or more pounds in one day or 5 or more pounds in a week. If you experience any of the warning signs for stroke: Sudden numbness or weakness of the face, arm or leg; especially on one side of the body, sudden confusion, trouble speaking or understanding, sudden trouble seeing in one or both eyes, sudden trouble walking, dizziness, loss of balance or coordination, sudden sever headache with no cause; Call 911 or go to the emergency room. Stroke is a medical emergency. Some risk factors for stroke: Age, cigarette smoking, diabetes, excessive alcohol consumption, family history , high blood pressure, overweight, physical inactivity, prior stroke, heart attack, diagnosis of carotid artery stenosis or other artery disease. If you smoke, STOP: Smoking or tobacco use significantly increases your risk of heart and lung disease. Your chance of disease greatly increases if you continue to smoke. For more information, call the [place] tobacco quit line for smoking cessation QUIT-NOW ( ) - Diet and Activity Activity: resume usual activities as tolerated, wear oxygen at all times Diet: diabetic diet, low fat, low cholesterol, low salt diet
--- NOTE | 2018-01-29 09:44 | Physician Discharge Referral ---
Home Health/Hosp Referral Info Transfer to: Home Health Attending Provider: Beverly Foy Provider in Charge Post Discharge: PCP - Diagnosis (1) Diabetes Priority: Secondary Status: Chronic (2) CVA (cerebral vascular accident) Priority: Secondary Status: Chronic (3) STEMI (ST elevation myocardial infarction) Priority: Primary Status: Acute (4) Acute kidney failure Priority: Primary Status: Resolved (5) Goals of care, counseling/discussion Priority: Primary Status: Resolved (6) DVT prophylaxis Priority: Primary Status: Acute (7) Acute systolic (congestive) heart failure Priority: Primary Status: Acute (8) Acute respiratory failure with hypoxia Priority: Primary Status: Acute - Respiratory Orders Oxygen / L per min (4-5 L /min) Smoking Cessation: Smoking cessation has been advised. For more information, call the [facility] Quit Line at 1-566-SSAN-NOW. - Diet/Nutrition Diet/Nutrition Orders: Cardiac - Activity Activity Orders: Up ad maurizio - Services Needed Following services are medically necessary services: Nursing, Home Health Aide - Transfer Medications Prescriptions: Ondansetron ODT [Zofran ODT] 4 mg SL Q6HR PRN 7 Days #28 tab.rapdis PRN Reason: Nausea Furosemide [Lasix] 40 mg PO DAILY #30 tablet Haloperidol Oral Conc [Haldol] 2 mg PO TID PRN 7 Days #15 mls PRN Reason: Agitation HYDROcodone/Acet 5/325 mg [[place] 5-325 mg] 1 tab PO Q6H PRN 7 Days #28 tab PRN Reason: Moderate Pain Insulin DETEMIR [Levemir] 15 unit SQ BID #2 vial MORPHINE SUL Oral CONC [Roxanol Oral Conc] 5 mg PO Q4H PRN 7 Days #15 ml PRN Reason: pain/dyspnea Sennosides/Docusate Sodium [Senna Plus] 1 each PO BID #60 tablet Home Medications: Atorvastatin [Lipitor] 20 mg PO HS tablet 03/29/17 [Rx] Clopidogrel [Plavix] 75 mg PO DAILY tablet 03/29/17 [Rx] Docusate [Colace] 100 mg PO DAILY PRN 04/24/17 [History] Melatonin 5 mg PO HS PRN 04/24/17 [History] Aspirin [Lo-Dose Aspirin EC] 81 mg PO DAILY 01/26/18 [History] Flavoxate HCl 100 mg PO TID 01/26/18 [History] Insulin ASPART [NovoLOG] 15 unit SQ TIDWM 01/26/18 [History] HYDROcodone/Acet 5/325 mg [[place] 5-325 mg] 1 tab PO Q6H PRN 7 Days #28 tab 01/28 [Rx] Haloperidol Oral Conc [Haldol] 2 mg PO TID PRN 7 Days #15 mls 01/28/18 [Rx] MORPHINE SUL Oral CONC [Roxanol Oral Conc] 5 mg PO Q4H PRN 7 Days #15 ml [Rx] Ondansetron ODT [Zofran ODT] 4 mg SL Q6HR PRN 7 Days #28 tab.rapdis 01/28/18 [Rx ] Furosemide [Lasix] 40 mg PO DAILY #30 tablet 01/29/18 [Rx] Insulin DETEMIR [Levemir] 15 unit SQ BID #2 vial 01/29/18 [Rx] Sennosides/Docusate Sodium [Senna Plus] 1 each PO BID #60 tablet 01/29/18 [Rx] Allergies/Adverse Reactions: 3 Allergy/AdvReac Type Severity Reaction Status Date / Time No Known Allergies Allergy Verified 01/26/18 12:37 Certification: Further, I certify that my clinical findings support that this patient is homebound (i.e. absences from home require considerable and taxing effort and are for medical reasons or mu-ism services or infrequently or short duration when for other reasons) because: Homebound Reason: Patient requires assistance of a person or device to safely leave home Attestation: My signature below is to certify that this patient is under my care and that I, or nurse practitioner, or a physician's budget assistant working with me, has a face-to -face encounter with this patient.
--- NOTE | 2018-01-29 13:28 | Event Note ---
Date of Encounter: 01/29/18 Time of Encounter: 12:00 Patient being discharged home with [facility] hospice care. Patient desires comfort care and transition home is set-up. Provided family and support. The palliative care appreciates the opportunity to participate in the care of this patient and her family. Prescriptions for comfort medications have been completed.
[2018-01-29] MEDS: Haloperidol Oral Conc 10 MG/5 ML UDC PO PRN (15:50)
[2018-01-29 15:58] VITALS: BP 129/40
== END 2018-01-29 16:09 | disposition home health service (06) | DRG 280 ==
LOC: EMEROOARM 11:43 → SUATTDRO 12:00 → ICNU 12:00 → 2ANU 01-27 11:32
PROVIDERS: ADMIT Emergency Medicine; ATTEND Internal Medicine